=== PATIENT | male | born 1975 | race Caucasian/White ===

== ENCOUNTER 2016-11-24 17:45 | Emergency (ER) | payer MEDICAID ==
[2016-11-24 17:45] VITALS: BMI 22.4
[2016-11-24 17:58] VITALS: BP 139/98; PULSE 81; RESP 18; TEMP 98.9; O2SAT 96
[2016-11-25] MEDS ORDERED: Potassium Chloride 20 mEq ER Tab PO ONE (02:03)
== END 2016-11-24 17:57 | disposition left against medical advice (07) ==
LOC: C.ER 17:45
DX: Z04.8 Encounter for examination and observation for other specified reasons (principal); Z02.9 Encounter for administrative examinations, unspecified

== ENCOUNTER 2016-11-24 18:18 | Emergency (ER) | payer MEDICAID ==
[2016-11-24 18:19] VITALS: BMI 22.4
[2016-11-24 18:33] VITALS: BP 126/77; PULSE 73; RESP 20; TEMP 98.4; O2SAT 95
--- NOTE | 2016-11-24 18:40 | C.PDOC ---
History Of Present Illness 41 yr old male presents to the ER s/p using PCP. Patient has no complaints. Patient registered to be seen but left without being seen and returned but eventually eloped. Time Seen by Provider: 11/24/16 18:28 Chief Complaint (Nursing): Substance Abuse History Per: Patient History/Exam Limitations: no limitations Onset/Duration Of Symptoms: Unknown Past Medical History Reviewed: Historical Data, Nursing Documentation, Vital Signs Vital Signs: Last Vital Signs Temp 98.4 F 11/24/16 18:31 Pulse 73 11/24/16 18:31 Resp 20 11/24/16 18:31 BP 126/77 11/24/16 18:31 Pulse Ox 95 11/24/16 18:40 - Medical History PMH: Anxiety, Asthma, Depression - [facility] Procedures SUTURE OF LIP LACERATION (04/04/13) TETANUS TOXOID ADMINIST (04/04/13) Family History: States: No Known Family Hx - Social History Hx Tobacco Use: No Hx Alcohol Use: Yes Hx Substance Use: Yes (marijuana, PCP) - Immunization History Hx Tetanus Toxoid Vaccination: No Hx Influenza Vaccination: No Hx Pneumococcal Vaccination: No Review Of Systems Except As Marked, All Systems Reviewed And Found Negative. Cardiovascular: Negative for: Chest Pain Respiratory: Negative for: Shortness of Breath Neurological: Negative for: Weakness, Numbness, Headache Physical Exam - Physical Exam Appears: Non-toxic, No Acute Distress Skin: Warm, Dry Head: Atraumatic, Normacephalic Oral Mucosa: Moist Neurological/Psych: Oriented x3, Normal Speech, Normal Motor ED Course And Treatment O2 Sat by Pulse Oximetry: 95 Disposition - Disposition Disposition: ELOPEMENT - ER ONLY Disposition Time: 18:40 Condition: GUARDED - Clinical Impression Clinical Impression: Drug dependence - Scribe Statement The provider has reviewed the documentation as recorded by the Monster Trujillo Provider Attestation: All medical record entries made by the Monster were at my direction and personally dictated by me. I have reviewed the chart and agree that the record accurately reflects my personal performance of the history, physical exam, medical decision making, and the department course for this patient. I have also personally directed, reviewed, and agree with the discharge instructions and disposition.
== END 2016-11-24 18:31 | disposition left against medical advice (07) ==
LOC: C.ER 18:18
DX: F19.20 Other psychoactive substance dependence, uncomplicated (principal)

== ENCOUNTER 2016-11-24 21:20 | Inpatient (IN) | payer MEDICAID ==
[2016-11-24 21:20] VITALS: BMI 22.4
--- NOTE | 2016-11-24 22:27 | C.PDOC ---
History Of Present Illness A 41 year old male brought in via EMS and by his mother, presents to the ED for suicidal ideation after doing narcotics today. Patient states he hears voices but does not take medication for it. Patient notes he want to kill himself by "snapping his neck". Patient denies fever, chills, trauma, homicidal ideation, or any other complaints. Time Seen by Provider: 11/24/16 22:26 Chief Complaint (Nursing): Psychiatric Evaluation History Per: Patient History/Exam Limitations: no limitations Onset/Duration Of Symptoms: Hrs Current Symptoms Are (Timing): Still Present Suicide/Self Injury Attempted (Context): None Modifying Factor(s): Narcotics Severity: Mild Associated Symptoms: Suicidal Thoughts, Suicidal Plan Recent travel outside of the [place]: No Past Medical History Reviewed: Historical Data, Nursing Documentation, Vital Signs Vital Signs: Last Vital Signs Temp 97.8 F 11/24/16 21:39 Pulse 59 L 11/24/16 21:39 Resp 20 11/24/16 21:39 BP 144/82 11/24/16 21:39 Pulse Ox 98 11/25/16 01:05 - Medical History PMH: Anxiety, Asthma, Depression Denies: Diabetes, Hepatitis, HIV, HTN, Seizures, Sexually Transmitted Disease - [facility] Procedures SUTURE OF LIP LACERATION (04/04/13) TETANUS TOXOID ADMINIST (04/04/13) Family History: States: Unknown Family Hx - Social History Hx Tobacco Use: No Hx Alcohol Use: Yes Hx Substance Use: Yes (marijuana, PCP) - Immunization History Hx Tetanus Toxoid Vaccination: No Hx Influenza Vaccination: No Hx Pneumococcal Vaccination: No Review Of Systems Except As Marked, All Systems Reviewed And Found Negative. Constitutional: Negative for: Fever, Chills Psych: Positive for: Suicidal ideation. Negative for: Other (Homicidal ideation ) Physical Exam - Physical Exam Appears: Non-toxic, No Acute Distress Skin: Warm, Dry Head: Atraumatic, Normacephalic Eye(s): bilateral: PERRL, EOMI Cardiovascular: No Murmur Respiratory: No Rales, No Rhonchi, No Wheezing Neurological/Psych: Oriented x3, Normal Speech, No Other (No focal deficit) ED Course And Treatment - Laboratory Results Result Diagrams: 11/24/16 22:53 11/24/16 22:53 O2 Sat by Pulse Oximetry: 98 (Room air) Pulse Ox Interpretation: Normal Disposition Discussed With Dr.: Phyllis Pineda Comment: accepted the pt on his service and took over the care at 12:52 AM Doctor Will See Patient In The: Hospital Counseled Patient/Family Regarding: Studies Performed, Diagnosis - Disposition Disposition: HOSPITALIZED Disposition Time: 22:27 Condition: FAIR - POA Present On Arrival: None - Clinical Impression Clinical Impression: Drug abuse, Drug-induced psychotic disorder - Scribe Statement The provider has reviewed the documentation as recorded by the Scribe Kale shrestha All medical record entries made by the Scribe were at my direction and personally dictated by me. I have reviewed the chart and agree that the record accurately reflects my personal performance of the history, physical exam, medical decision making, and the department course for this patient. I have also personally directed, reviewed, and agree with the discharge instructions and disposition. Decision To Admit - Pt Status Changed To: Hospital Disposition Of: Inpatient - Admit Certification Admit to Inpatient:: After my assessment, the patient will require hospitalization for at least two midnights. This is because of the severity of symptoms shown, intensity of services needed, and/or the medical risk in this patient being treated as an outpatient. - InPatient: Physician Admission Certification: I certify that this patient requires 2 or more midnights of care for the following reason:: After my assessment, the patient will require hospitalization for at least two midnights. This is because of the severity of symptoms shown, intensity of services needed, and/or the medical risk in this patient being treated as an outpatient. - . Bed Request Type: Psychiatry Admitting Physician: Phyllis Pineda Patient Diagnosis: Drug abuse, Drug-induced psychotic disorder
[2016-11-24 22:58] LABS: BASO % 0.2 % (0.0-2.0); EOS % 0.3 % (0.0-4.0); HEMATOCRIT 49.4 % (35.0-51.0); LYMPH # 1.5 K/uL (1.0-4.3); LYMPH % 15.1 % (20.0-40.0); MEAN CELL VOLUME 93.4 fL (80.0-94.0); MEAN CORPUSCULAR HGB CONC 33.1 g/dL (33.0-37.0); MEAN PLATELET VOLUME 9.7 fL (7.2-11.7); MONO # 0.6 K/uL (0.0-0.8); MONO % 6.3 % (0.0-10.0); WHITE BLOOD COUNT 9.8 K/uL (4.8-10.8)
[2016-11-24 23:05] LABS: RBC URINE 6 /hpf (0-3); TRANSITIONAL EPITHIAL < 1 /hpf (0-3); URINE BACTERIA RARE (<OCC); URINE BILIRUBIN NEGATIVE (NEGATIVE); URINE BLOOD NEGATIVE (NEGATIVE); URINE COLOR Amber (YELLOW); URINE GLUCOSE (UA) NORMAL (Normal); URINE HYALINE CAST 0-2 /lpf (0-2); URINE KETONE 1+ mg/dL (NEGATIVE); URINE LEUKOCYTE ESTERASE NEG Leu/uL (Negative); URINE PROTEIN 2+ mg/dL (NEGATIVE); WBC URINE 6 /hpf (0-5)
[2016-11-24 23:06] LABS: CHLORIDE 100 mmol/L (98-107)
[2016-11-24 23:07] LABS: POTASSIUM 3.3 mmol/L (3.6-5.2); SODIUM 145 mmol/L (132-148)
[2016-11-24 23:09] LABS: ALB/GLOB RATIO 1.3 (1.0-2.1); ALKALINE PHOSPHATASE 58 U/L (38-126); ALT/SGPT 54 U/L (21-72); AST/SGOT 70 U/L (17-59); BILIRUBIN,TOTAL 1.2 mg/dL (0.2-1.3); BLOOD UREA NITROGEN 15 mg/dL (9-20); CALCIUM 9.2 mg/dl (8.6-10.4); CARBON DIOXIDE 28 mmol/L (22-30); GFR AFRICAN-AMERICAN > 60; GLUCOSE,RANDOM 119 mg/dL (75-110); TOTAL PROTEIN 8.3 g/dL (6.3-8.3)
[2016-11-24 23:10] LABS: ALCOHOL SERUM < 10 mg/dl (0-10)
[2016-11-25] MEDS ORDERED: Potassium Chloride 20 mEq ER Tab PO STA (02:24)
--- NOTE | 2016-11-25 11:51 | PCM.PSYCH ---
Initial Psychiatric Evaluation - Initial Psychiatric Evaluation Type of Admission: Voluntary Legal Status: Capacity Chief Complaint (in patient's own words): "I wanted to kill myself" History of Present Illness and Precipitating Events: Pt is seen, chart reviewed, case discussed. Pt is a 41 y/o single male. He has one daughter who is 20 years old but he does not have much contact with her. He has been homeless for 2 years and occasionally stays with his mother. He is from [place]. 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 Pt does not receive any social support. Pt feels depressed and anxious. He reports that he was suicidal and had a plan to either overdose or hang himself. He contracts for safety and is future oriented. He feels bad and angry about the mistakes he made in his life such as drugs and robbery. He feels "the world is crumbling down on him." Patient reports that he has been hospitalized in the past for psychiatric issues, most recently last year but could not provide where. He says he has been diagnosed with depression and bipolar disorder. Pt says he has tried to commit suicide by overdosing in the past. Pt has been using PCP, marijuana, and cocaine. He used heroin on Friday but says he is not addicted. He has used Xanax in the past. He denies current alcohol use. Pt has never been to rehab. Pt expressed that he wants help , to change his life and give back to the community. Pt denies current legal problems. PMH: denies PsychHx: depression, bipolar FamPsychHx: Mother drinks, nephew has psych problems. 32 minutes Current Medications: Active Medications Generic Name Dose Route Start Last Admin Trade Name Freq PRN Reason Stop Dose Admin Acetaminophen 650 mg 11/25/16 02:25 Tylenol 325mg Tab PO Q4 PRN Pain, moderate (4-7) Gabapentin 300 mg 11/25/16 14:00 Neurontin PO TID NITZA Hydroxyzine HCl 50 mg 11/25/16 11:28 Atarax PO Q6H PRN Anxiety Lorazepam 2 mg 11/25/16 11:08 11/25/16 11:18 Ativan PO 2 mg Q8 PRN Administration Anxiety Quetiapine Fumarate 50 mg 11/25/16 11:08 11/25/16 11:18 Seroquel PO 50 mg TID NITZA Administration Quetiapine Fumarate 100 mg 11/25/16 22:00 Seroquel PO HS NITZA Trazodone HCl 100 mg 11/25/16 22:00 Desyrel PO HS PRN Sleep Past Psychiatric History - Past Psychiatric History Previous Treatment History: None Pertinent Medical Hx (Current Medical&Sleep Prob, Allergies): Allergies Allergy/AdvReac Type Severity Reaction Status Date / Time No Known Allergies Allergy Verified 11/24/16 21:44 Albuterol 0.5% [Albuterol 0.5% Inhal Tea (2.5 mg/0.5 ml) UD] 0.5 ml IH Q6 PRN # 20 neb 08/31/15 Review of Systems - Psychiatric Psychiatric: Abnormal Sleep Pattern, Anhedonia, Anxiety, Depression, Difficulty Concentrating. absent: Homicidal Ideation Mental Status Examination - Personal Presentation Personal Presentation: Looks older than stated age (unkempt, has grimacing, odd at times) - Affect Affect: Constricted (odd), Depressed - Motor Activity Motor Activity: Psychomotor Agitation - Reliability in Providing Information Reliability in Providing Information: Fair - Speech Speech: Tangential - Mood Mood: Depressed, Anxious - Formal Thought Process Formal Thought Process: Paranoia - Obsessions/Compulsions Obsessions: No Compulsions: No - Cognitive Functions Orientation: Person, Place, Situation, Time Sensorium: Alert Attention/Concentration: Easily distracted Abstract Thinking: [place] [facility] Judgement: Intact, as evidence by: Insight regarding need for hospitalization Memory: Recent intact, as evidence by: Ability to recall events of the day, Remote intact, as evidenced by: Abilit to recall sig. life events - Risk Risk: Withdrawal, Diminished functioning - Strength & Assets Inventory Strength & Assets Inventory: Cooperative - Limitations Limitations: Living alone DSM 5 DX - DSM 5 DSM 5 Diagnosis: Schizoaffective disorder-depressed PCP use disorder Cocaine use disorder Cannabis use disorder r/o Major Depressive Disorder with psychotic features - Recommended/Plan of Treatment Treatment Recommendations and Plan of Treatment: Schizoaffective disorder -depressed -Seroquel 100mg + 50 mg bid and will increase more -medications as needed -CBT -individual/group therapy -attend groups and activities -Trazodone for insomnia PCP use disorder -CBT -IL for abstinence -support and psychoeducation -ativan prn Cocaine/cannabis use disorder -CBT - gabapentin -supportive/group therapy -[place] for abstinence -support and psychoeducation 35 minutes Projected ELOS: 7 days Prognosis: good wt treatment - Smoking Cessation Smoking Cessation Initiated: Yes
--- NOTE | 2016-11-26 13:41 | PCM.PYCHPN ---
Psychiatric Progress Note - Psychiatric Progress Note Patient seen today, length of contact: 18 minutes Patient Chief Complaint: "I feel ok" Problems Identified/Issues Discussed: Pt is seen, chart reviewed, case discussed Pt says that he slept well last night. He feels much better and does not have any S/I. He has an appetite and complains of no side effects from medications. Pt was social and interacting with other patients. He was more calm and less agitated. Per nursing pt followed instructions yesterday and came to nursing station when he was having bad thoughts. Aftercare was discussed, pt wants to go back to work and continue with an IOP. Psychosocial support and education was given Medication Change: No Medical Record Reviewed: Yes Mental Status Examination - Cognitive Function Orientation: Person, Place, Situation, Time Memory: Intact Attention: WNL Concentration: WNL Association: Loose Fund of Knowledge: Poor - Mood Mood: Anxious - Affect Affect: Constricted (odd), Depressed - Speech Speech: Appropriate - Formal Thought Process Formal Thought Process: Paranoia - Suicidal Ideation Suicidal Ideation: No - Homicidal Ideation Homicidal Ideation: No Goal/Treatment Plan - Goal/Treatment Plan Need for Continued Stay: Remain at risks for inpatient hospitalization, Discharge may exacerbated symptoms Progress Toward Problem(s) and Goals/Treatment Plan: Schizoaffective disorder -depressed -Seroquel 100mg + 50 mg bid and will increase more -medications as needed -CBT -individual/group therapy -attend groups and activities -Trazodone for insomnia PCP use disorder -CBT -[place] for abstinence -support and psychoeducation -ativan prn Cocaine/cannabis use disorder -CBT - gabapentin -supportive/group therapy -[place] for abstinence -support and psychoeducation
--- NOTE | 2016-11-27 13:25 | PCM.PYCHPN ---
Psychiatric Progress Note - Psychiatric Progress Note Patient seen today, length of contact: 16 min Patient Chief Complaint: "I am up and down, but better" Problems Identified/Issues Discussed: Pt is seen, chart reviewed, case discussed The pt is seen, chart reviewed, case discussed with staff. The pt is compliant with medications and reports no side-effects. Symptoms are improving but needs more time to stabilize. After care discussed, support and psychoeducation given. He now wants to go to [facility] Medication Change: No Medical Record Reviewed: Yes Mental Status Examination - Cognitive Function Orientation: Person, Place, Situation, Time Memory: Intact Attention: WNL Concentration: WNL Association: WNL Fund of Knowledge: Poor - Mood Mood: Anxious - Affect Affect: Constricted - Speech Speech: Appropriate - Formal Thought Process Formal Thought Process: No Impairment - Suicidal Ideation Suicidal Ideation: No - Homicidal Ideation Homicidal Ideation: No Goal/Treatment Plan - Goal/Treatment Plan Need for Continued Stay: Discharge may exacerbated symptoms, Severe functional impairment Progress Toward Problem(s) and Goals/Treatment Plan: Schizoaffective disorder -depressed -Seroquel 100mg + 50 mg seems to be enough for now -medications as needed -CBT -individual/group therapy -attend groups and activities -Trazodone for insomnia PCP use disorder -CBT -AL for abstinence -support and psychoeducation -ativan prn Cocaine/cannabis use disorder -CBT - gabapentin -supportive/group therapy -AL for abstinence -support and psychoeducation Estimated Date of D/C: 11/29/16
--- NOTE | 2016-11-28 13:13 | PCM.PYCHPN ---
Psychiatric Progress Note - Psychiatric Progress Note Patient seen today, length of contact: 15 min Patient Chief Complaint: "I am better" Problems Identified/Issues Discussed: The pt is seen, chart reviewed, case discussed with staff. The pt is compliant with medications and reports no side-effects. Symptoms are improving slowly but needs more time to stabilize. He denies feeling paranoid, but he was 2 days ago and he told his mother that someone was trying to kill him here. He laughs it now After care discussed, support and psychoeducation given. He now wants to go to [facility]. 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 Medication Change: Yes (seroquel adjusted) Medical Record Reviewed: Yes Mental Status Examination - Cognitive Function Orientation: Person, Place, Situation, Time Memory: Intact Attention: WNL Concentration: WNL Association: WNL Fund of Knowledge: Poor - Mood Mood: Anxious - Affect Affect: Constricted - Speech Speech: Appropriate - Formal Thought Process Formal Thought Process: No Impairment - Suicidal Ideation Suicidal Ideation: No - Homicidal Ideation Homicidal Ideation: No Goal/Treatment Plan - Goal/Treatment Plan Need for Continued Stay: Discharge may exacerbated symptoms, Severe functional impairment Progress Toward Problem(s) and Goals/Treatment Plan: Schizoaffective disorder -depressed -Seroquel 200 mg -medications as needed -CBT -individual/group therapy -attend groups and activities -Trazodone for insomnia PCP use disorder -CBT -[place] for abstinence -support and psychoeducation -ativan prn Cocaine/cannabis use disorder -CBT - gabapentin -supportive/group therapy -IN for abstinence -support and psychoeducation Estimated Date of D/C: 11/29/16
--- NOTE | 2016-11-29 15:08 | PCM.PYCHPN ---
Psychiatric Progress Note - Psychiatric Progress Note Patient seen today, length of contact: 15 min Patient Chief Complaint: "I'm ok" Problems Identified/Issues Discussed: Patient is seen, chart reviewed, case discussed. Patient says he is doing well. He reports his mood is "perfect." He slept well last night. Patient denies any nausea, vomiting, diarrhea and cramps. He denies medication side effects. Pt wants to go to outpatient treatment instead of rehab because he will go back to living with his mom and she needs help around the house. He says he is determined to stay away from drugs. Patient denies feeling depressed or anxious. Patient says that now the drugs are out of his system he is having less paranoid thoughts and auditory hallucinations. Patient is calm. He has been socializing with the other patients. Patient has a constricted affect. Medication Change: No Medical Record Reviewed: Yes Mental Status Examination - Cognitive Function Orientation: Person, Place, Situation, Time Memory: Intact Attention: WNL Concentration: WNL Association: WNL Fund of Knowledge: Poor - Mood Mood: Anxious - Affect Affect: Constricted - Speech Speech: Appropriate - Formal Thought Process Formal Thought Process: No Impairment - Suicidal Ideation Suicidal Ideation: No - Homicidal Ideation Homicidal Ideation: No Goal/Treatment Plan - Goal/Treatment Plan Need for Continued Stay: Discharge may exacerbated symptoms, Severe functional impairment Progress Toward Problem(s) and Goals/Treatment Plan: Schizoaffective disorder -depressed -Seroquel 200 mg -medications as needed -CBT -individual/group therapy -attend groups and activities -Trazodone for insomnia PCP use disorder -CBT -[place] for abstinence -support and psychoeducation -ativan prn Cocaine/cannabis use disorder -CBT - gabapentin -supportive/group therapy -[place] for abstinence -support and psychoeducation Estimated Date of D/C: 11/29/16
--- NOTE | 2016-11-30 12:50 | PCM.PYCHPN ---
Psychiatric Progress Note - Psychiatric Progress Note Patient seen today, length of contact: 15 min Patient Chief Complaint: "I'm ok" Problems Identified/Issues Discussed: Patient is seen, chart reviewed, case discussed. Patient says he is doing well. He reports his mood is "perfect." He slept well last night. Patient denies any nausea, vomiting, diarrhea and cramps. He denies medication side effects. Pt wants to go to outpatient treatment instead of rehab because he will go back to living with his mom and she needs help around the house. He says he is determined to stay away from drugs. Patient denies feeling depressed or anxious. Patient says that now the drugs are out of his system he is having less paranoid thoughts and auditory hallucinations. Patient is calm. He has been socializing with the other patients. Patient has a constricted affect. Medication Change: No Medical Record Reviewed: Yes Mental Status Examination - Cognitive Function Orientation: Person, Place, Situation, Time Memory: Intact Attention: WNL Concentration: WNL Association: WNL Fund of Knowledge: Poor - Mood Mood: Anxious - Affect Affect: Constricted - Speech Speech: Appropriate - Formal Thought Process Formal Thought Process: No Impairment - Suicidal Ideation Suicidal Ideation: No - Homicidal Ideation Homicidal Ideation: No Goal/Treatment Plan - Goal/Treatment Plan Need for Continued Stay: Discharge may exacerbated symptoms, Severe functional impairment Progress Toward Problem(s) and Goals/Treatment Plan: Schizoaffective disorder -depressed -Seroquel 200 mg -medications as needed -CBT -individual/group therapy -attend groups and activities -Trazodone for insomnia PCP use disorder -CBT -[place] for abstinence -support and psychoeducation -ativan prn Cocaine/cannabis use disorder -CBT - gabapentin -supportive/group therapy -[place] for abstinence -support and psychoeducation Estimated Date of D/C: 11/29/16
[2016-12-01 07:27] VITALS: O2SAT 96
--- NOTE | 2016-12-01 16:19 | PCM.PYCHPN ---
Psychiatric Progress Note - Psychiatric Progress Note Patient seen today, length of contact: 15 min Patient Chief Complaint: "I'm ok" Problems Identified/Issues Discussed: Patient is seen, chart reviewed, case discussed. Patient says he is doing well. He reports his mood is "perfect." He slept well last night. Patient denies any nausea, vomiting, diarrhea and cramps. He denies medication side effects. Pt wants to go to outpatient treatment instead of rehab because he will go back to living with his mom and she needs help around the house. He says he is determined to stay away from drugs. Patient denies feeling depressed or anxious. Patient says that now the drugs are out of his system he is having less paranoid thoughts and auditory hallucinations. Patient is calm. He has been socializing with the other patients. Patient has a constricted affect. Medication Change: No Medical Record Reviewed: Yes Mental Status Examination - Cognitive Function Orientation: Person, Place, Situation, Time Memory: Intact Attention: WNL Concentration: WNL Association: WNL Fund of Knowledge: Poor - Mood Mood: Anxious - Affect Affect: Constricted - Speech Speech: Appropriate - Formal Thought Process Formal Thought Process: No Impairment - Suicidal Ideation Suicidal Ideation: No - Homicidal Ideation Homicidal Ideation: No Goal/Treatment Plan - Goal/Treatment Plan Need for Continued Stay: Discharge may exacerbated symptoms, Severe functional impairment Progress Toward Problem(s) and Goals/Treatment Plan: Schizoaffective disorder -depressed -Seroquel 200 mg -medications as needed -CBT -individual/group therapy -attend groups and activities -Trazodone for insomnia PCP use disorder -CBT -[place] for abstinence -support and psychoeducation -ativan prn Cocaine/cannabis use disorder -CBT - gabapentin -supportive/group therapy -DC for abstinence -support and psychoeducation Estimated Date of D/C: 11/29/16
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
[2016-12-02 10:31] VITALS: BP 108/76; PULSE 77; RESP 20; TEMP 97.7
== END 2016-12-02 10:35 | disposition home or self-care (01) | DRG 430 ==
LOC: C.ER 21:20 → C.5E 11-25 00:51
PROVIDERS: ADMIT Psychiatry & Neurology Psychiatry; ATTEND Psychiatry & Neurology Psychiatry
PROC: GZHZZZZ Group Psychotherapy (ICD-10-PCS; principal; 2016-11-25)
PROC: GZ58ZZZ Individual Psychotherapy, Cognitive-Behavioral (ICD-10-PCS; 2016-11-25)
PROC: GZ56ZZZ Individual Psychotherapy, Supportive (ICD-10-PCS; 2016-11-25)
DX: F25.1 Schizoaffective disorder, depressive type (principal); F32.3 Major depressive disorder, single episode, severe with psychotic features; F16.90 Hallucinogen use, unspecified, uncomplicated; F14.90 Cocaine use, unspecified, uncomplicated; F12.90 Cannabis use, unspecified, uncomplicated; J45.909 Unspecified asthma, uncomplicated; F41.9 Anxiety disorder, unspecified; Z59.0 Homelessness; G47.00 Insomnia, unspecified

== ENCOUNTER 2017-01-20 01:27 | Emergency (ER) | payer SELFPAY ==
[2017-01-20 01:28] VITALS: BMI 22.4
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
[2017-01-20] MEDS ORDERED: Sodium Chloride 0.9% 1,000 ML IV ONE (01:40)
[2017-01-20] MEDS ORDERED: Sodium Chloride 0.9% 1,000 ML ONE (01:46)
[2017-01-20 02:00] LABS: BASO % 0.3 % (0.0-2.0); EOS # 0.1 K/uL (0.0-0.7); HEMATOCRIT 45.2 % (35.0-51.0); LYMPH % 15.4 % (20.0-40.0); MEAN CELL VOLUME 92.3 fL (80.0-94.0); MEAN CORPUSCULAR HEMOGLOBIN 31.2 pg (27.0-31.0); MEAN CORPUSCULAR HGB CONC 33.8 g/dL (33.0-37.0); MONO # 0.4 K/uL (0.0-0.8); MONO % 6.2 % (0.0-10.0); NRBC % 0.1 % (0.0-2.0); RED CELL DISTRIBUTION WIDTH 12.4 % (11.5-14.5); WHITE BLOOD COUNT 6.8 K/uL (4.8-10.8)
[2017-01-20 02:10] LABS: ABG ALLEN TEST POS; ARTERIAL BLOOD HGB O2 SAT 91.3 % (95.0-98.0); DRAW SITE RR; HHB 3.5 % (0.0-5.0); METHEMOGLOBIN 1.3 % (0.0-3.0)
[2017-01-20 02:13] LABS: CHLORIDE 108 mmol/L (98-107); POTASSIUM 3.6 mmol/L (3.6-5.2); SODIUM 144 mmol/L (132-148)
[2017-01-20 02:15] LABS: AST/SGOT 29 U/L (17-59); BILIRUBIN,TOTAL 0.8 mg/dL (0.2-1.3); CARBON DIOXIDE 27 mmol/L (22-30); GFR AFRICAN-AMERICAN > 60
[2017-01-20 02:16] LABS: ALB/GLOB RATIO 1.1 (1.0-2.1); ALKALINE PHOSPHATASE 63 U/L (38-126); ALT/SGPT 40 U/L (21-72); BLOOD UREA NITROGEN 12 mg/dL (9-20); GLUCOSE,RANDOM 112 mg/dL (75-110); TOTAL PROTEIN 7.6 g/dL (6.3-8.3)
[2017-01-20] MEDS ORDERED: Albuterol 0.042% Inhal Sol (1.25 mg/3 mL) UD IH STA (02:26)
[2017-01-20] MEDS ORDERED: Albuterol 0.083% Inhal Sol (2.5 mg/3 mL) UD ONE (02:33)
[2017-01-20 04:13] LABS: ARTERIAL BLOOD HGB O2 SAT 94.5 % (95.0-98.0); CARBOXYHEMOGLOBIN 3.3 % (0.5-1.5); METHEMOGLOBIN 1.4 % (0.0-3.0)
[2017-01-20 04:35] VITALS: BP 139/78; PULSE 91; RESP 20
[2017-01-20 04:44] VITALS: O2SAT 99
--- NOTE | 2017-01-20 08:45 | RAD ---
HISTORY: Shortness of breath COMPARISON: No prior. TECHNIQUE: Chest PA and lateral FINDINGS: LUNGS: Diffuse increased interstitial lung markings which may represent minimal edema and/or minimal infiltrate. Clinical correlation. PLEURA: No significant pleural effusion identified. No pneumothorax apparent. CARDIOVASCULAR: Normal. OSSEOUS STRUCTURES: No significant abnormalities. VISUALIZED UPPER ABDOMEN: Normal. OTHER FINDINGS: None. IMPRESSION: Diffuse increased interstitial lung markings which may represent minimal edema and/or minimal infiltrate. Clinical correlation.
== END 2017-01-20 04:32 | disposition home or self-care (01) ==
LOC: C.ER 01:27
DX: J45.909 Unspecified asthma, uncomplicated (principal); T59.811A Toxic effect of smoke, accidental (unintentional), initial encounter; J70.5 Respiratory conditions due to smoke inhalation; Y92.9 Unspecified place or not applicable; Z72.0 Tobacco use
CPT/HCPCS: 71020; 80053; 82375; 82803; 84484; 85025; 85378; 99285; J7040

== ENCOUNTER 2017-03-10 23:43 | Emergency (ER) | payer SELFPAY ==
[2017-03-10 23:44] VITALS: BMI 22.4
[2017-03-11] MEDS ORDERED: Sodium Chloride 0.9% 1,000 ML IV ONE (01:32)
[2017-03-11] MEDS ORDERED: Sodium Chloride 0.9% 1,000 ML ONE (01:54)
[2017-03-11 02:25] LABS: BASO % 0.3 % (0.0-2.0); EOS # 0.1 K/uL (0.0-0.7); HEMATOCRIT 46.2 % (35.0-51.0); LYMPH # 1.2 K/uL (1.0-4.3); LYMPH % 13.6 % (20.0-40.0); MEAN CELL VOLUME 92.4 fL (80.0-94.0); MEAN CORPUSCULAR HEMOGLOBIN 31.5 pg (27.0-31.0); MEAN CORPUSCULAR HGB CONC 34.1 g/dL (33.0-37.0); MEAN PLATELET VOLUME 9.2 fL (7.2-11.7); MONO # 0.7 K/uL (0.0-0.8); MONO % 7.5 % (0.0-10.0); WHITE BLOOD COUNT 8.8 K/uL (4.8-10.8)
[2017-03-11 02:38] LABS: CHLORIDE 104 mmol/L (98-107); SODIUM 145 mmol/L (132-148)
[2017-03-11 02:40] LABS: BILIRUBIN,TOTAL 0.9 mg/dL (0.2-1.3); CARBON DIOXIDE 28 mmol/L (22-30); GFR AFRICAN-AMERICAN > 60
[2017-03-11 02:41] LABS: ALB/GLOB RATIO 1.1 (1.0-2.1); ALKALINE PHOSPHATASE 74 U/L (38-126); ALT/SGPT 48 U/L (21-72); AST/SGOT 39 U/L (17-59); BLOOD UREA NITROGEN 12 mg/dL (9-20); CALCIUM 9.3 mg/dl (8.6-10.4); GLUCOSE,RANDOM 96 mg/dL (75-110); TOTAL PROTEIN 7.6 g/dL (6.3-8.3)
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
[2017-03-11 04:36] VITALS: BP 114/68; PULSE 61; RESP 18; TEMP 97.5
--- NOTE | 2017-03-11 08:20 | RAD ---
PROCEDURE: Radiographs of the Chest and Right Ribs. HISTORY: rib cage pain/ injury COMPARISON: 01/20/2017 TECHNIQUE: Frontal radiograph of the chest and multiple oblique radiographs of the right ribs were obtained. FINDINGS: RIGHT RIBS: Trace deformity consistent with a subacute to chronic nondisplaced inferolateral right rib fracture - probably the 9th rib is noted. LUNGS: Clear. Prior interstitial lung marking relative prominence is no longer suggested. PLEURA: No pneumothorax or pleural fluid. CARDIOVASCULAR: Normal sized heart. No pulmonary vascular congestion. OTHER FINDINGS: None. IMPRESSION: Subacute to chronic nondisplaced inferolateral right rib fracture -signs of healing are suggested -likely the 9th rib. No pneumothorax or pleural parenchymal contiguous pathology
[2017-03-11 17:29] VITALS: O2SAT 96
--- NOTE | 2017-03-11 18:28 | CARD ---
APPROVED REPORT EKG Measurement Heart [id number] <Conclusion> Normal sinus rhythm Possible Left atrial enlargement Left axis deviation Abnormal ECG
== END 2017-03-11 04:38 | disposition home or self-care (01) ==
LOC: C.ER 23:43
DX: R07.89 Other chest pain (principal)
CPT/HCPCS: 71101; 80053; 84484; 85025; 85378; 93005; 96374; 99284; J1885; J7040

== ENCOUNTER 2017-05-05 15:41 | Inpatient (IN) | payer MEDICAID, OTHER ==
[2017-05-05 15:41] VITALS: BMI 22.4
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
[2017-05-05 17:25] LABS: BASO % 0.2 % (0.0-2.0); EOS % 0.2 % (0.0-4.0); HEMATOCRIT 47.1 % (35.0-51.0); LYMPH # 0.8 K/uL (1.0-4.3); LYMPH % 14.8 % (20.0-40.0); MEAN CELL VOLUME 93.1 fL (80.0-94.0); MEAN CORPUSCULAR HEMOGLOBIN 32.2 pg (27.0-31.0); MEAN CORPUSCULAR HGB CONC 34.6 g/dL (33.0-37.0); MONO # 0.4 K/uL (0.0-0.8); MONO % 6.7 % (0.0-10.0); NRBC % 0.1 % (0.0-2.0); RED CELL DISTRIBUTION WIDTH 12.7 % (11.5-14.5); WHITE BLOOD COUNT 5.5 K/uL (4.8-10.8)
[2017-05-05 17:51] LABS: CHLORIDE 101 mmol/L (98-107); SODIUM 137 mmol/L (132-148)
[2017-05-05 17:53] LABS: GFR AFRICAN-AMERICAN > 60
[2017-05-05 17:54] LABS: ALB/GLOB RATIO 1.2 (1.0-2.1); ALKALINE PHOSPHATASE 53 U/L (38-126); ALT/SGPT 53 U/L (21-72); AST/SGOT 32 U/L (17-59); BILIRUBIN,TOTAL 1.2 mg/dL (0.2-1.3); BLOOD UREA NITROGEN 12 mg/dL (9-20); CALCIUM 9.1 mg/dl (8.6-10.4); CARBON DIOXIDE 22 mmol/L (22-30); GLUCOSE,RANDOM 88 mg/dL (75-110); TOTAL PROTEIN 8.2 g/dL (6.3-8.3)
[2017-05-05 17:55] LABS: ALCOHOL SERUM < 10 mg/dl (0-10)
[2017-05-05 17:59] LABS: RBC URINE 2 /hpf (0-3); URINE BACTERIA RARE (<OCC); URINE BILIRUBIN NEGATIVE (NEGATIVE); URINE BLOOD NEGATIVE (NEGATIVE); URINE COLOR Amber (YELLOW); URINE GLUCOSE (UA) NORMAL (Normal); URINE KETONE 1+ mg/dL (NEGATIVE); URINE LEUKOCYTE ESTERASE NEG Leu/uL (Negative); URINE PROTEIN 1+ mg/dL (NEGATIVE); WBC URINE 1 /hpf (0-5)
--- NOTE | 2017-05-05 22:17 | PCM.BM ---
<Maeve Melara - Last Filed: 05/05/17 22:16> Treatment Plan Problems - Problems identified on initial assessmt Problem 1 Date Initiated: 05/05/17 Time Initiated: 22:16 Assessment reference: NA Status: Active Treatment assets and liabiliti Patient Assests: cooperative, ADL independent Patient Liabilities: substance abuse - Milieu Protocol Maintain good personal hygiene: daily Encourage regular showers, daily Remind patient to perform daily oral care, daily Assist patient to perform ADL's Conduct patient checks and document Observation sheet: Q15 minutes Maintain personal safety: every shift Educate patient to report safety concerns to staff, every shift Monitor environment for contraband/sharps Medication safety: Monitor for expected outcome, potential side effects: every shift, Assess barriers to learning: every shift, Assess readiness for medication education: every shift <Jese Martel - Last Filed: 05/06/17 17:49> - Diagnosis (1) Major depressive disorder, recurrent, severe with psychotic features Status: Acute Interventions: Assess/adjust medications daily and/or as needed SEE patient on him individual basis 7x/week to assess status of hallucinations. Discuss risks, benefits, side effects and alternatives of medications. 05/06/17 17:49 (2) Phencyclidine (PCP) use disorder, moderate Status: Acute Interventions: Assess 7x/week regarding severity of withdrawal Educated regarding risks, benefits, side effects and alternatives of medications Used motivational interview for abstinence Used CBT for relapse prevention Medication management for withdrawal symptoms Encouraged medication assisted treatment 05/06/17 17:47 (3) Cannabis use disorder, moderate, dependence Status: Acute Interventions: Assess 7x/week regarding severity of withdrawal Educated regarding risks, benefits, side effects and alternatives of medications Used motivational interview for abstinence Used CBT for relapse prevention Medication management for withdrawal symptoms Encouraged medication assisted treatment 05/06/17 17:48 (4) Cocaine use disorder, mild, abuse Status: Acute Interventions: Assess 7x/week regarding severity of withdrawal Educated regarding risks, benefits, side effects and alternatives of medications Used motivational interview for abstinence Used CBT for relapse prevention Medication management for withdrawal symptoms Encouraged medication assisted treatment 05/06/17 17:48 <Giselle Ramirez - Last Filed: 05/07/17 12:05> Family Contact Family involvement: Famliy/SO not involved - Goals for Treatment Patient goals for treatment: "I guess I'll go to outpatient." Discharge/Continuing Care - Education Needs Education Needs: Patient Medication, Patient Coping Skills - Discharge Discharge Criteria: Tolerates medication w/o severe side effects, Free of Suicidal thoughts, Reduction of target symptoms Discharge to:: Home - Treatment Team Participation Discussed with Family/SO: No Was Patient/Family/SO present at Treatment Team Meeting: Yes
--- NOTE | 2017-05-06 17:32 | PCM.PSYCH ---
Initial Psychiatric Evaluation - Initial Psychiatric Evaluation Type of Admission: Voluntary Legal Status: Capacity Chief Complaint (in patient's own words): I was depressed and wanted to kill myself History of Present Illness and Precipitating Events: Patient is a 42 years old, unemployed, single, male with history of schizoaffective disorder depressive type, PCP use disorder, cannabis and cocaine use disorder was admitted due to worsening of depressive symptoms and suicidal ideations or plan to overdose on medications. Patient reported he is depressed for last many months, was not taking any medications due to insurance reasons. Reported no problem with sleep because of substance use. No change in appetite or weight change. Patient reported he became suicidal yesterday with plan to overdose on his drugs including PCP, cocaine and cannabis. His family brought him to the ER and patient was admitted subsequently. Patient reported he still feels suicidal but feels safe in the hospital. He has 3 previous suicidal attempts by overdose. History of 2 previous psychiatric admissions. Also reported that at times he hears voices telling him to kill himself. Patient has history of PCP, cannabis, cocaine and alcohol use. He started using PCP at 14 years of age, increased gradually. Currently he was using 2-3 cigarettes daily. Last used yesterday. Cannabis started at 14 years of age, increased gradually. Currently was using 2-3 blunts daily. Last used yesterday. Cocaine. Was guarded about cocaine but it was also positive for sure drug screen. Patient reported that he drinks alcohol only socially. No smoking cigarettes. Patient has history of shoplifting and robbery in the past. He was born in [place], has high school graduation, not working. Lives with mother or friends. Supported by family. He still and has one grown up child. His height is 6 feet 1 inch and weight is 180 pounds. Current Medications: Active Medications Generic Name Dose Route Start Last Admin Trade Name Freq PRN Reason Stop Dose Admin Benztropine Mesylate 2 mg 05/05/17 22:40 Cogentin PO Q6 PRN Extra Pyramidal Symptoms Clonidine HCl 0.1 mg 05/05/17 22:40 Catapres PO Q8 PRN COWS Score More or Equal to 5 Dicyclomine HCl 10 mg 05/05/17 22:40 Bentyl PO Q6 PRN Muscle spasm Diphenhydramine HCl 50 mg 05/05/17 22:40 Benadryl PO Q6 PRN Extra Pyramidal Symptoms Docusate Sodium 100 mg 05/05/17 22:40 05/06/17 09:20 Colace PO 100 mg BID PRN Administration Constipation Gabapentin 300 mg 05/06/17 10:00 05/06/17 09:20 Neurontin PO 300 mg BID NITZA Administration Haloperidol 5 mg 05/05/17 22:40 Haldol PO Q8 PRN Moderate Agitation Haloperidol Lactate 5 mg 05/05/17 22:40 Haldol IM Q8 PRN Moderate Agitation Hydroxyzine HCl 25 mg 05/05/17 22:40 Atarax PO Q6 PRN Anxiety Ibuprofen 400 mg 05/05/17 22:40 Motrin Tab PO Q6 PRN Pain, moderate (4-7) Loperamide HCl 2 mg 05/05/17 22:40 Imodium PO Q8 PRN Diarrhea Lorazepam 2 mg 05/05/17 22:40 Ativan PO Q8H PRN Severe Agitation Ondansetron HCl 4 mg 05/05/17 22:40 Zofran Tab PO Q8 PRN Nausea/Vomiting Quetiapine Fumarate 100 mg 05/06/17 22:00 Seroquel PO HS [facility] Past Psychiatric History - Past Psychiatric History Previous Treatment History: Inpatient History of Abuse: None reported History of ETOH/Drug Use: See HPI History of Family Illness: Reported one of his brother committed suicide by overdose on heroin. Pertinent Medical Hx (Current Medical&Sleep Prob, Allergies): Allergies Allergy/AdvReac Type Severity Reaction Status Date / Time No Known Allergies Allergy Verified 05/05/17 16:10 QUEtiapine [Seroquel] 200 mg PO HS #30 tab 12/02/16 Albuterol HFA [Ventolin HFA 90 mcg/actuation (8 g)] 2 puff IH [id number] #1 inhaler 01/20/17 Asthma Review of Systems - Psychiatric Psychiatric: Depression Mental Status Examination - Personal Presentation Personal Presentation: Looks stated age - Affect Affect: Depressed - Motor Activity Motor Activity: Calm - Reliability in Providing Information Reliability in Providing Information: Fair - Speech Speech: Organized - Mood Mood: Depressed - Formal Thought Process Formal Thought Process: No Impairment - Hallucinations/Delusions Hallucinations: Other (None reported) Delusions: Other - Obsessions/Compulsions Obsessions: None Compulsions: None - Cognitive Functions Orientation: Person, Place, Situation, Time Sensorium: Alert Attention/Concentration: Attentive Abstract Thinking: [place] Estimate of Intelligence: Average Judgement: Intact, as evidence by: Insight regarding need for hospitalization Memory: Recent intact, as evidence by: 3/3 object recall, Remote intact, as evidenced by: Ability to recall historical events - Risk Risk: Withdrawal, Diminished functioning - Strength & Assets Inventory Strength & Assets Inventory: Family support, Cooperative - Limitations Limitations: Other DSM 5 DX - DSM 5 DSM 5 Diagnosis: Schizoaffective disorder depressive type PCP use disorder Cannabis use disorder moderate Cocaine use disorder - Recommended/Plan of Treatment Treatment Recommendations and Plan of Treatment: Patient education Supportive therapy We'll start his discharge medications. Other when necessary medications Projected ELOS: 8-10 days - Smoking Cessation Smoking Cessation Initiated: No Reason for not providing: Patient doesn't smoke cigarettes
[2017-05-07] MEDS ORDERED: Influenza Vaccine 60 mcg/0.5 mL SYR (4YR UP) IM ONE (10:00)
--- NOTE | 2017-05-07 15:44 | PCM.PYCHPN ---
Psychiatric Progress Note - Psychiatric Progress Note Patient seen today, length of contact: 15 minutes Patient Chief Complaint: I'm feeling much better. Problems Identified/Issues Discussed: Patient seen. Chart reviewed. Case discussed with the staff. Issues related to illness and treatment were discussed with the patient. Reported compliant with treatment with no adverse affects. Tolerating treatment very well. Reporting feeling better, had good night sleep. Less irritable and less agitated. At the time of evaluation, patient was awake alert oriented 3, had no delusions , no auditory or visual hallucinations, no suicidal ideations or homicidal ideations. Medical Problems: Asthma Diagnostic Results: Reviewed DSM 5 Symptoms Update: Some improvement with treatment Medication Change: No Medical Record Reviewed: Yes Mental Status Examination - Cognitive Function Orientation: Person, Place, Situation, Time Memory: Intact Attention: WNL Concentration: WNL Association: WN Fund of Knowledge: WN - Mood Mood: Depressed (Less than before) - Affect Affect: Depressed - Speech Speech: Appropriate - Formal Thought Process Formal Thought Process: No Impairment Psychotic Thoughts and Behaviors: None - Suicidal Ideation Suicidal Ideation: No - Homicidal Ideation Homicidal Ideation: No Goal/Treatment Plan - Goal/Treatment Plan Need for Continued Stay: Remain at risks for inpatient hospitalization, Discharge may exacerbated symptoms, Severe functional impairment Progress Toward Problem(s) and Goals/Treatment Plan: Patient education Supportive therapy Continue treatment as before Estimated Date of D/C: 05/12/17 - Smoking Cessation Smoking Cessation Initiated: No
--- NOTE | 2017-05-08 17:48 | PCM.PYCHPN ---
Psychiatric Progress Note - Psychiatric Progress Note Patient seen today, length of contact: 15 minutes Patient Chief Complaint: I'm feeling much better. Problems Identified/Issues Discussed: Patient seen. Chart reviewed. Case discussed with the staff. Issues related to illness and treatment were discussed with the patient. Reported compliant with treatment with no adverse affects. Tolerating treatment very well. Reporting feeling better, had good night sleep. Less irritable and less agitated. At the time of evaluation, patient was awake alert oriented 3, had no delusions , no auditory or visual hallucinations, no suicidal ideations or homicidal ideations. Medical Problems: Asthma Diagnostic Results: Reviewed DSM 5 Symptoms Update: Improving with treatment Medication Change: No Medical Record Reviewed: Yes Mental Status Examination - Cognitive Function Orientation: Person, Place, Situation, Time Memory: Intact Attention: WNL Concentration: WNL Association: WN Fund of Knowledge: [facility] Decription of patient's judgement and insights: Fair - Mood Mood: Depressed (Less than before) - Affect Affect: Depressed - Speech Speech: Appropriate - Formal Thought Process Formal Thought Process: No Impairment Psychotic Thoughts and Behaviors: None - Suicidal Ideation Suicidal Ideation: No - Homicidal Ideation Homicidal Ideation: No Goal/Treatment Plan - Goal/Treatment Plan Need for Continued Stay: Remain at risks for inpatient hospitalization, Discharge may exacerbated symptoms, Severe functional impairment Progress Toward Problem(s) and Goals/Treatment Plan: Patient education Supportive therapy Continue treatment as before Estimated Date of D/C: 05/12/17 - Smoking Cessation Smoking Cessation Initiated: No
--- NOTE | 2017-05-09 13:04 | PCM.PYCHPN ---
Psychiatric Progress Note - Psychiatric Progress Note Patient seen today, length of contact: 15 minutes Patient Chief Complaint: I'm feeling much better. Problems Identified/Issues Discussed: Patient seen. Chart reviewed. Case discussed with the staff. Issues related to illness and treatment were discussed with the patient. Reported compliant with treatment with no adverse affects. Tolerating treatment very well. Reporting feeling better, had good night sleep. Less irritable and less agitated. At the time of evaluation, patient was awake alert oriented 3, had no delusions , no auditory or visual hallucinations, no suicidal ideations or homicidal ideations. Medical Problems: Asthma Diagnostic Results: Reviewed DSM 5 Symptoms Update: improving with treatment Medication Change: No Medical Record Reviewed: Yes Mental Status Examination - Cognitive Function Orientation: Person, Place, Situation, Time Memory: Intact Attention: WNL Concentration: WNL Association: WN Fund of Knowledge: [facility] Decription of patient's judgement and insights: Fair - Mood Mood: Depressed (Less than before) - Affect Affect: Depressed - Speech Speech: Appropriate - Formal Thought Process Formal Thought Process: No Impairment Psychotic Thoughts and Behaviors: None - Suicidal Ideation Suicidal Ideation: No - Homicidal Ideation Homicidal Ideation: No Goal/Treatment Plan - Goal/Treatment Plan Need for Continued Stay: Remain at risks for inpatient hospitalization, Discharge may exacerbated symptoms, Severe functional impairment Progress Toward Problem(s) and Goals/Treatment Plan: Patient education Supportive therapy Continue treatment as before wants to go to [facility] or [facility] after discharge from the hospital, for follow-up.. Estimated Date of D/C: 05/12/17 - Smoking Cessation Smoking Cessation Initiated: No
--- NOTE | 2017-05-10 14:02 | PCM.PYCHPN ---
Psychiatric Progress Note - Psychiatric Progress Note Patient seen today, length of contact: 15 minutes Patient Chief Complaint: I'm feeling much better. Problems Identified/Issues Discussed: Patient seen. Chart reviewed. Case discussed with the staff. Issues related to illness and treatment were discussed with the patient. Reported compliant with treatment with no adverse affects. Tolerating treatment very well. Reporting feeling better, had good night sleep. Less irritable and less agitated. At the time of evaluation, patient was awake alert oriented 3, had no delusions , no auditory or visual hallucinations, no suicidal ideations or homicidal ideations. Medical Problems: Asthma Diagnostic Results: Reviewed DSM 5 Symptoms Update: Improving with treatment Medication Change: No Medical Record Reviewed: Yes Mental Status Examination - Cognitive Function Orientation: Person, Place, Situation, Time Memory: Intact Attention: WNL Concentration: WNL Association: WN Fund of Knowledge: [facility] Decription of patient's judgement and insights: Fair - Mood Mood: Depressed (Much less than before) - Affect Affect: Other (Appropriate) - Speech Speech: Appropriate - Formal Thought Process Formal Thought Process: No Impairment Psychotic Thoughts and Behaviors: None - Suicidal Ideation Suicidal Ideation: No - Homicidal Ideation Homicidal Ideation: No Goal/Treatment Plan - Goal/Treatment Plan Need for Continued Stay: Remain at risks for inpatient hospitalization, Discharge may exacerbated symptoms, Severe functional impairment Progress Toward Problem(s) and Goals/Treatment Plan: Patient education Supportive therapy Continue treatment as before wants to go to [facility] or [facility] after discharge from the hospital, for follow-up.. Estimated Date of D/C: 05/12/17 - Smoking Cessation Smoking Cessation Initiated: No
--- NOTE | 2017-05-11 15:17 | PCM.PYCHPN ---
Psychiatric Progress Note - Psychiatric Progress Note Patient seen today, length of contact: 15 minutes Patient Chief Complaint: I'm feeling much better. Problems Identified/Issues Discussed: Patient seen. Chart reviewed. Case discussed with the staff. Issues related to illness and treatment were discussed with the patient. Reported compliant with treatment with no adverse affects. Tolerating treatment very well. Reporting feeling better, had good night sleep. Less irritable and less agitated. At the time of evaluation, patient was awake alert oriented 3, had no delusions , no auditory or visual hallucinations, no suicidal ideations or homicidal ideations. Medical Problems: Asthma Diagnostic Results: Reviewed DSM 5 Symptoms Update: Improving with treatment Medication Change: No Medical Record Reviewed: Yes Mental Status Examination - Cognitive Function Orientation: Person, Place, Situation, Time Memory: Intact Attention: WNL Concentration: WNL Association: WN Fund of Knowledge: [facility] Decription of patient's judgement and insights: Fair - Mood Mood: Depressed (Much less than before) - Affect Affect: Other (Appropriate) - Speech Speech: Appropriate - Formal Thought Process Formal Thought Process: No Impairment Psychotic Thoughts and Behaviors: None - Suicidal Ideation Suicidal Ideation: No - Homicidal Ideation Homicidal Ideation: No Goal/Treatment Plan - Goal/Treatment Plan Need for Continued Stay: Remain at risks for inpatient hospitalization, Discharge may exacerbated symptoms, Severe functional impairment Progress Toward Problem(s) and Goals/Treatment Plan: Patient education Supportive therapy Continue treatment as before wants to go to [facility] or [facility] after discharge from the hospital, for follow-up.. Estimated Date of D/C: 05/12/17 - Smoking Cessation Smoking Cessation Initiated: No
[2017-05-12 07:35] VITALS: BP 101/61; PULSE 54; RESP 16; TEMP 98.3; O2SAT 99
--- NOTE | 2017-05-12 10:11 | PCM.PYCHDC ---
Mental Status Examination - Mental Status Examination Orientation: Person, Place, Situation, Time Memory: Intact Mood: Neutral Affect: Constricted Speech: Soft Attention: WNL Concentration: WNL Association: WNL Fund of Knowledge: WNL Formal Thought Process: No Impairment Description of patient's judgement and insight: good, fair Psychotic Thoughts and Behaviors: denies any AVH Suicidal Ideation: No Current Homicidal Ideation?: No Discharge Summary - Discharge Note Reason for Hospitalization: Patient is a 42 years old, unemployed, single, male with history of schizoaffective disorder depressive type, PCP use disorder, cannabis and cocaine use disorder was admitted due to worsening of depressive symptoms and suicidal ideations or plan to overdose on medications. Patient reported he is depressed for last many months, was not taking any medications due to insurance reasons. Reported no problem with sleep because of substance use. No change in appetite or weight change. Patient reported he became suicidal yesterday with plan to overdose on his drugs including PCP, cocaine and cannabis. His family brought him to the ER and patient was admitted subsequently. Patient reported he still feels suicidal but feels safe in the hospital. He has 3 previous suicidal attempts by overdose. History of 2 previous psychiatric admissions. Also reported that at times he hears voices telling him to kill himself. Patient has history of PCP, cannabis, cocaine and alcohol use. He started using PCP at 14 years of age, increased gradually. Currently he was using 2-3 cigarettes daily. Last used yesterday. Cannabis started at 14 years of age, increased gradually. Currently was using 2-3 blunts daily. Last used yesterday. Cocaine. Was guarded about cocaine but it was also positive for sure drug screen. Patient reported that he drinks alcohol only socially. No smoking cigarettes. Patient has history of shoplifting and robbery in the past. He was born in [place], has high school graduation, not working. Lives with mother or friends. Supported by family. He still and has one grown up child. His height is 6 feet 1 inch and weight is 180 pounds. Consultations:: List each consultation separately and include: 1. Reason for request. 2. Findings. 3. Follow-up Summary of Hospital Course include:: 1. Description of specific treatment plan utilized for patients during their course of treatmen. 2. Summarize the time- course for resolution of acute symptoms and/or regressed behaviors. 3. Describe issues identified and worked on during hospitalization. 4. Describe medication utilized. 5. Describe medical problems identified and treated. 6. Reassessment of suicide risk Summary of Hospital Course: During the course of his stay, patient (pt) started progressively improving and he no longer remained irritable, depressed, and suicidal. His mood was improved and he started attending groups and meetings and started socializing. Patient denied any feelings of hopelessness, helplessness, and worthlessness, denied any problem with the sleep or appetite, denied suicidal ideation or homicidal ideation. Pt denied any auditory or visual hallucinations. Some changes were made in his current medications and patient was discharged on following medications. He tolerated these medications very well and denied any side effects. CBT and AR were used. - Final Diagnosis (DSM 5) Condition upon Discharge: FAIR DSM 5: Schizoaffective disorder depressive type PCP use disorder Cannabis use disorder moderate Cocaine use disorder Disposition: HOME/ ROUTINE Follow-up Treatment Plan: Education: Pt was educated and counseled about the risks and benefits of taking and not taking medications. Pt was educated and counseled about the risks of drinking and abusing drugs. Pt was educated and counseled to go to the ER or call 911 if pt develop suicidal ideation or homicidal ideation, worsening of symptoms or severe side effects of the meds. Prescriptions/Medication Reconciliation: Gabapentin [Neurontin] 300 mg PO BID 14 Days cap QUEtiapine [Seroquel] 100 mg PO HS #14 tab - Smoking Cessation Smoking Cessation Medication prescribed: No - Antipsychotic Medications Pt discharged on 2 or more routine antipsychotic medications: No
== END 2017-05-12 11:00 | disposition home or self-care (01) | DRG 885 ==
LOC: C.ER 15:41 → C.5E 21:12
PROVIDERS: ADMIT Psychiatry & Neurology Psychiatry; ATTEND Psychiatry & Neurology Psychiatry
PROC: GZ3ZZZZ Medication Management (ICD-10-PCS; principal; 2017-05-05)
PROC: GZHZZZZ Group Psychotherapy (ICD-10-PCS; 2017-05-05)
PROC: GZ56ZZZ Individual Psychotherapy, Supportive (ICD-10-PCS; 2017-05-05)
PROC: HZ59ZZZ Individual Psychotherapy for Substance Abuse Treatment, Supportive (ICD-10-PCS; 2017-05-05)
DX: F25.1 Schizoaffective disorder, depressive type (principal); R45.851 Suicidal ideations; F16.20 Hallucinogen dependence, uncomplicated; F14.10 Cocaine abuse, uncomplicated; F12.20 Cannabis dependence, uncomplicated; F17.210 Nicotine dependence, cigarettes, uncomplicated; J45.909 Unspecified asthma, uncomplicated

== ENCOUNTER 2017-07-11 19:30 | Inpatient (IN) | payer MEDICAID ==
[2017-07-11 19:30] VITALS: BMI 22.4
--- NOTE | 2017-07-11 19:59 | C.PDOC ---
History Of Present Illness 42 y/o male presents to the ER for detox from marijuana and PCP use from the previous night. He reports that he had alcohol today. Patient denies any suicidal ideation at present. He does not have any medical complaints. Time Seen by Provider: 07/11/17 19:49 Chief Complaint (Nursing): Medical Clearance History Per: Patient History/Exam Limitations: no limitations Onset/Duration Of Symptoms: Days Current Symptoms Are (Timing): Still Present Past Medical History Reviewed: Historical Data, Nursing Documentation, Vital Signs Vital Signs: Last Vital Signs Temp 99.2 F 07/11/17 22:15 Pulse 77 07/11/17 22:15 Resp 18 07/11/17 22:15 BP 136/83 07/11/17 22:15 Pulse Ox 96 07/11/17 22:25 - Medical History PMH: Anxiety, Asthma, Depression, Fractures (RIB) Denies: Diabetes (Patient denied), Hepatitis (Patient denied), HIV (Patient denied), HTN (Patient denied), Chronic Kidney Disease, Seizures (Patient denied) , Sexually Transmitted Disease (Patient denied) Surgical History: No Surg Hx - [facility] Procedures GROUP PSYCHOTHERAPY (05/05/17) INDIV PSYCHOTHERAPY FOR SUBSTANCE ABUSE TREATMENT, SUPPORT (05/05/17) INDIVIDUAL PSYCHOTHERAPY, COGNITIVE-BEHAVIORAL (11/25/16) INDIVIDUAL PSYCHOTHERAPY, SUPPORTIVE (05/05/17) MEDICATION MANAGEMENT (05/05/17) SUTURE OF LIP LACERATION (04/04/13) TETANUS TOXOID ADMINIST (04/04/13) Family History: States: No Known Family Hx - Social History Hx Tobacco Use: Yes (smokes cigrettes) Hx Alcohol Use: Yes Hx Substance Use: Yes - Immunization History Hx Tetanus Toxoid Vaccination: No Hx Influenza Vaccination: No Hx Pneumococcal Vaccination: No Review Of Systems Except As Marked, All Systems Reviewed And Found Negative. Physical Exam - Physical Exam Appears: No Acute Distress Skin: Normal Color, Warm Head: Atraumatic, Normacephalic Nose: Normal Oral Mucosa: Moist Neck: Supple Cardiovascular: Rhythm Regular Respiratory: Normal Breath Sounds, No Accessory Muscle Use Gastrointestinal/Abdominal: Normal Exam, No Tenderness Neurological/Psych: Oriented x3, Normal Speech, Other (right sided facial twitch ) ED Course And Treatment - Laboratory Results Result Diagrams: 07/11/17 20:31 07/11/17 20:31 O2 Sat by Pulse Oximetry: 96 (RA) Pulse Ox Interpretation: Normal Medical Decision Making Medical Decision Making: Impression: Detox from Marijuana and PCP use Plan: --Labs --Urinalysis --Maalox 30 ml PO Time: 2224 Patient seen by crisis team, patient to be admitted under Dr. Martel Disposition Doctor Will See Patient In The: Hospital - Disposition Disposition: HOSPITALIZED Disposition Time: 22:30 Condition: STABLE Forms: [facility] (Liberian) - Clinical Impression Clinical Impression: Schizoaffective disorder, Substance abuse or dependence - Scribe Statement The provider has reviewed the documentation as recorded by the Keiraibe Rosalia Sahni Provider Attestation: All medical record entries made by the Keiraibe were at my direction and personally dictated by me. I have reviewed the chart and agree that the record accurately reflects my personal performance of the history, physical exam, medical decision making, and the department course for this patient. I have also personally directed, reviewed, and agree with the discharge instructions and disposition.
[2017-07-11] MEDS ORDERED: Aluminum Hydroxide/Magnesium Hydroxide Susp (30 mL) PO STA (20:34)
[2017-07-11] MEDS ORDERED: Aluminum Hydroxide/Magnesium Hydroxide Susp (30 mL) ONE (20:39)
[2017-07-11 20:43] LABS: BASO % 0.4 % (0.0-2.0); EOS % 0.4 % (0.0-4.0); HEMATOCRIT 49.9 % (35.0-51.0); LYMPH # 2.4 K/uL (1.0-4.3); LYMPH % 20.5 % (20.0-40.0); MEAN CELL VOLUME 93.6 fL (80.0-94.0); MEAN CORPUSCULAR HEMOGLOBIN 31.8 pg (27.0-31.0); MONO # 0.8 K/uL (0.0-0.8); MONO % 6.5 % (0.0-10.0); NRBC % 0.1 % (0.0-2.0); RED CELL DISTRIBUTION WIDTH 12.9 % (11.5-14.5); WHITE BLOOD COUNT 11.8 K/uL (4.8-10.8)
[2017-07-11 20:51] LABS: ALCOHOL SERUM < 10 mg/dl (0-10); ALKALINE PHOSPHATASE 69 U/L (38-126); ALT/SGPT 72 U/L (21-72); AST/SGOT 44 U/L (17-59); BILIRUBIN,TOTAL 0.9 mg/dL (0.2-1.3); BLOOD UREA NITROGEN 13 mg/dL (9-20); CALCIUM 8.9 mg/dl (8.6-10.4); CARBON DIOXIDE 29 mmol/L (22-30); CHLORIDE 102 mmol/L (98-107); GFR AFRICAN-AMERICAN > 60; GLUCOSE,RANDOM 160 mg/dL (75-110); POTASSIUM 3.4 mmol/L (3.6-5.2); SODIUM 141 mmol/L (132-148); TOTAL PROTEIN 9.5 g/dL (6.3-8.3)
[2017-07-11 21:01] LABS: RBC URINE 5 /hpf (0-3); URINE BACTERIA MOD (<OCC); URINE BILIRUBIN NEGATIVE (NEGATIVE); URINE BLOOD NEGATIVE (NEGATIVE); URINE COLOR Amber (YELLOW); URINE GLUCOSE (UA) NORMAL (Normal); URINE KETONE TRACE mg/dL (NEGATIVE); URINE LEUKOCYTE ESTERASE NEG Leu/uL (Negative); URINE PROTEIN 1+ mg/dL (NEGATIVE); WBC URINE 3 /hpf (0-5)
[2017-07-12] MEDS ORDERED: Pneumococcal 23-Valent Vaccine IM ONE (00:33)
[2017-07-12] MEDS ORDERED: Influenza Vaccine 60 mcg/0.5 mL SYR (4YR UP) IM ONE (01:12)
--- NOTE | 2017-07-12 15:52 | PCM.PSYCH ---
Initial Psychiatric Evaluation - Initial Psychiatric Evaluation Chief Complaint (in patient's own words): I was feeling suicidal and depressed. History of Present Illness and Precipitating Events: Patient is a 42 years old, unemployed, single, male with history of schizoaffective disorder depressive type, PCP use disorder, cannabis and cocaine use disorder was admitted due to worsening of depressive symptoms and suicidal ideations with plan to overdose on medications. Patient reported he is depressed for last many months, was not taking any medications due to insurance reasons. Reported no problem with sleep because of substance use. No change in appetite or weight change. Patient reported he became suicidal yesterday with plan to overdose on his drugs including PCP, cocaine and cannabis. His family brought him to the ER and patient was admitted subsequently. Patient reported he still feels suicidal but feels safe in the hospital. He has 3 previous suicidal attempts by overdose. History of 2 previous psychiatric admissions. Also reported that at times he hears voices telling him to kill himself. Patient has history of PCP, cannabis, cocaine and alcohol use. He started using PCP at 14 years of age, increased gradually. Currently he was using 2-3 cigarettes daily. Last used yesterday. Cannabis started at 14 years of age, increased gradually. Currently was using 2-3 blunts daily. Last used yesterday. Cocaine. Was guarded about cocaine but it was also positive for sure drug screen. Patient reported that he drinks alcohol only socially. No smoking cigarettes. Patient has history of shoplifting and robbery in the past. He was born in [place], has high school graduation, not working,Patient is supported by family. Never and has no children. Lives with mother. Past Psychiatric History - Past Psychiatric History Previous Treatment History: Inpatient At [facility]: At [facility] History of Abuse: None reported History of ETOH/Drug Use: See HPI. History of Family Illness: Reported history of alcohol and cannabis use and whole family. Pertinent Medical Hx (Current Medical&Sleep Prob, Allergies): Allergies Allergy/AdvReac Type Severity Reaction Status Date / Time No Known Allergies Allergy Verified 07/11/17 19:36 Albuterol HFA [Ventolin HFA 90 mcg/actuation (8 g)] 2 puff IH [id number] #1 inhaler 01/20/17 Gabapentin [Neurontin] 300 mg PO BID 14 Days cap 05/12/17 QUEtiapine [Seroquel] 100 mg PO HS #14 tab 05/12/17 Asthma Review of Systems - Psychiatric Psychiatric: Depression Mental Status Examination - Personal Presentation Personal Presentation: Looks stated age - Affect Affect: Depressed - Motor Activity Motor Activity: Calm - Reliability in Providing Information Reliability in Providing Information: Fair - Speech Speech: Organized - Mood Mood: Depressed - Formal Thought Process Formal Thought Process: No Impairment - Hallucinations/Delusions Hallucinations: Other (None reported) Delusions: Other - Obsessions/Compulsions Obsessions: None Compulsions: None - Cognitive Functions Orientation: Person, Place, Situation, Time Sensorium: Alert Attention/Concentration: Attentive Abstract Thinking: Sanford Estimate of Intelligence: Average Judgement: Intact, as evidence by: Insight regarding need for hospitalization Memory: Recent intact, as evidence by: 3/3 object recall, Remote intact, as evidenced by: Ability to recall historical events - Risk Risk: Withdrawal, Diminished functioning - Strength & Assets Inventory Strength & Assets Inventory: Family support, Cooperative - Limitations Limitations: Other DSM 5 DX - DSM 5 DSM 5 Diagnosis: Schizoaffective disorder depressive type PCP use disorder moderate Cocaine use disorder severe Cannabis use disorder severe - Recommended/Plan of Treatment Treatment Recommendations and Plan of Treatment: Patient education Supportive therapy CBT for relapse prevention Motivational intervention for abstinence Projected ELOS: 8-10 days - Smoking Cessation Smoking Cessation Initiated: No
--- NOTE | 2017-07-13 16:53 | PCM.PYCHPN ---
Psychiatric Progress Note - Psychiatric Progress Note Patient seen today, length of contact: 15 minutes Patient Chief Complaint: ""I'm feeling Good Problems Identified/Issues Discussed: Patient was seen. Chart was reviewed important content noted. Nurse input received. Patient has no new complaints. No events overnight. Patient slept well and is eating well. Patient denies any depressive symptoms. Denies suicidal or homicidal ideations. Patient does not report hallucinations. No delusions elicited. No paranoia elicited. Patient has remained in good clinical and behavioral control. Symptoms are improving, but needs more time to stabilize. Patient is finding medications beneficial and would like to continue with treatment plan. Patient appreciated that treatment team is trying to help. DSM 5 Symptoms Update: Schizoaffective disorder depressive type PCP use disorder moderate Cocaine use disorder severe Cannabis use disorder severe Medication Change: No Medical Record Reviewed: Yes Mental Status Examination - Cognitive Function Orientation: Person, Place, Situation, Time Memory: Intact Attention: WNL Concentration: WNL Association: WNL Fund of Knowledge: WNL Decription of patient's judgement and insights: limited/limited - Mood Mood: Depressed - Affect Affect: Constricted - Speech Speech: Appropriate - Formal Thought Process Formal Thought Process: No Impairment Psychotic Thoughts and Behaviors: denied - Suicidal Ideation Suicidal Ideation: No - Homicidal Ideation Homicidal Ideation: No Goal/Treatment Plan - Goal/Treatment Plan Need for Continued Stay: Severe depression anxiety, Discharge may exacerbated symptoms Progress Toward Problem(s) and Goals/Treatment Plan: Continue current management and medications. Patient educated about risks, benefits, side effects & alternatives of meds. Pt verbalized understanding & agreed with the above.~ Therapy in milieu. Estimated Date of D/C: 07/16/17 - Smoking Cessation Smoking Cessation Initiated: Yes
[2017-07-13] MEDS ORDERED: Albuterol HFA 90 mcg/actuation (8 g) IH PRN (23:30)
--- NOTE | 2017-07-14 11:18 | PCM.PYCHPN ---
Psychiatric Progress Note - Psychiatric Progress Note Patient seen today, length of contact: 15 minutes Patient Chief Complaint: I am feeling little better. Problems Identified/Issues Discussed: Patient seen and evaluated, chart reviewed and discussed with the nurse. Patient remained disorganized and internally preoccupied. He still appears paranoid and delusional. Patient reports depressed mood and feelings of hopelessness and helplessness. Patient remained isolated, confined and withdrawn. Patient is compliant with medications and denies any side effects. Symptoms are improving but need more time to stabilize. Support and psychoeducation given. Medication Change: No Medical Record Reviewed: Yes Mental Status Examination - Cognitive Function Orientation: Person, Place, Situation, Time Memory: Intact Attention: WNL Concentration: Poor Association: WNL Fund of Knowledge: Poor - Mood Mood: Depressed - Affect Affect: Constricted - Speech Speech: Appropriate, Soft - Formal Thought Process Formal Thought Process: Loosening of associations - Suicidal Ideation Suicidal Ideation: No - Homicidal Ideation Homicidal Ideation: No Goal/Treatment Plan - Goal/Treatment Plan Need for Continued Stay: Severe depression anxiety, Discharge may exacerbated symptoms Progress Toward Problem(s) and Goals/Treatment Plan: Schizoaffective disorder depressive type PCP use disorder moderate Cocaine use disorder severe Cannabis use disorder severe CBT Psychoeducation Supportive therapy, group therapy, individual therapy Seroquel 200 mg PO QHS Neurontin 300 mg by mouth 2 times a day Trazodone 50 mg by mouth daily at bedtime Use [place] for abstinence Estimated Date of D/C: 07/16/17 - Smoking Cessation Smoking Cessation Initiated: No
[2017-07-14] MEDS ORDERED: Albuterol HFA 90 mcg/actuation (8 g) IH PRN (12:15)
--- NOTE | 2017-07-15 10:43 | PCM.BM ---
<SainiMarie Rachel - Last Filed: 07/15/17 10:41> Treatment Plan Problems - Problems identified on initial assessmt Depression Date Initiated: 07/15/17 Time Initiated: 10:41 Assessment reference: NA Status: Active Substance Abuse Date Initiated: 07/15/17 Time Initiated: 10:41 Assessment reference: NA Status: Active Treatment assets and liabiliti Patient Assests: cooperative, ADL independent, physically healthy, negotiates basic needs, cognitively intact Patient Liabilities: live alone, financial problems, poor support system, substance abuse (PCP, COCAINE, THC) - [facility] Protocol Maintain good personal hygiene: daily Encourage regular showers, daily Remind patient to perform daily oral care, every shift Assist patient to perform ADL's (SELF), other Assist patient to perform ADL's Conduct patient checks and document Observation sheet: Q15 minutes (safety) Maintain personal safety: every shift Educate patient to report safety concerns to staff, every shift Monitor environment for contraband/sharps Medication safety: Monitor for expected outcome, potential side effects: every shift, Assess barriers to learning: every shift, Assess readiness for medication education: every shift Milieu Narrative: Continue current management and medications. Patient educated about risks, benefits, side effects & alternatives of meds. Pt verbalized understanding & agreed with the above.~ Therapy in milieu. Discharge/Continuing Care - Treatment Team Participation Patient/Family/SO Statement: Continue current management and medications. Patient educated about risks, benefits, side effects & alternatives of meds. Pt verbalized understanding & agreed with the above.~ Therapy in milieu. <Giselle Ramirez - Last Filed: 07/15/17 15:12> Family Contact Family involvement: Famliy/SO not involved - Goals for Treatment Patient goals for treatment: "I want to go to a program." Discharge/Continuing Care - Education Needs Education Needs: Patient Medication, Patient Coping Skills, Patient Placement options, Patient Community resources - Discharge Discharge Criteria: Tolerates medication w/o severe side effects, No longer exhibiting s/s of withdrawal Discharge to:: Home - Treatment Team Participation Discussed with Family/SO: No Was Patient/Family/SO present at Treatment Team Meeting: Yes <Jacinto Ca - Last Filed: 07/17/17 22:44> - Diagnosis (1) Schizoaffective disorder Status: Acute Interventions: 07/17/17 22:44 * Assess/adjust medications daily and /or as needed * See patient on an individual basis 7x/week to assess status of hallucinations * Discuss risks, benefits, side effects and alternatives of medications * (2) Phencyclidine (PCP) use disorder, moderate Status: Acute Interventions: 07/17/17 22:44 * Assess 7x/week regarding severity of withdrawal * Educate regarding risks, benefits, side effects and alternatives of medications * Use Motivational Interviewing for abstinence * Use CBT for relapse prevention * Medication management for withdrawal symptoms * Encourage medication assisted treatment *
--- NOTE | 2017-07-15 22:23 | PCM.PYCHPN ---
Psychiatric Progress Note - Psychiatric Progress Note Patient seen today, length of contact: 15 minutes Patient Chief Complaint: I am feeling little better. Problems Identified/Issues Discussed: Patient seen and evaluated, chart reviewed and discussed with the nurse. Patient appears more organized but he still appears paranoid and delusional. Patient remained isolated, confined and withdrawn. He reports some improvement in his depressed mood and feelings of hopelessness and helplessness. Patient is compliant with medications and denies any side effects. Symptoms are improving but need more time to stabilize. Support and psychoeducation given. Medication Change: Yes (start seroquel in AM) Medical Record Reviewed: Yes Mental Status Examination - Cognitive Function Orientation: Person, Place, Situation, Time Memory: Intact Attention: WNL Concentration: Poor Association: WNL Fund of Knowledge: Poor - Mood Mood: Depressed - Affect Affect: Constricted - Speech Speech: Appropriate, Soft - Formal Thought Process Formal Thought Process: Loosening of associations - Suicidal Ideation Suicidal Ideation: No - Homicidal Ideation Homicidal Ideation: No Goal/Treatment Plan - Goal/Treatment Plan Need for Continued Stay: Severe depression anxiety, Discharge may exacerbated symptoms Progress Toward Problem(s) and Goals/Treatment Plan: Schizoaffective disorder depressive type PCP use disorder moderate Cocaine use disorder severe Cannabis use disorder severe CBT Psychoeducation Supportive therapy, group therapy, individual therapy Seroquel 50 mg PO Daily Seroquel 200 mg PO QHS Neurontin 300 mg by mouth 2 times a day Trazodone 50 mg by mouth daily at bedtime Use [place] for abstinence Estimated Date of D/C: 07/16/17
--- NOTE | 2017-07-16 11:29 | PCM.PYCHPN ---
Psychiatric Progress Note - Psychiatric Progress Note Patient seen today, length of contact: 15 minutes Patient Chief Complaint: I am feeling little better. Problems Identified/Issues Discussed: Patient seen and evaluated, chart reviewed and discussed with the nurse. As pe rthe staff pt started coming out of his room and appears less delusional and less paranoid. He reports some improvement in his depressed mood and feelings of hopelessness and helplessness. He wants to go to a rehab after discharge. Patient is compliant with medications and denies any side effects. Symptoms are improving but need more time to stabilize. Support and psychoeducation given. Medication Change: No Medical Record Reviewed: Yes Mental Status Examination - Cognitive Function Orientation: Person, Place, Situation, Time Memory: Intact Attention: WNL Concentration: Poor Association: WNL Fund of Knowledge: Poor - Mood Mood: Depressed - Affect Affect: Constricted - Speech Speech: Appropriate, Soft - Formal Thought Process Formal Thought Process: No Impairment - Suicidal Ideation Suicidal Ideation: No - Homicidal Ideation Homicidal Ideation: No Goal/Treatment Plan - Goal/Treatment Plan Need for Continued Stay: Severe depression anxiety, Discharge may exacerbated symptoms Progress Toward Problem(s) and Goals/Treatment Plan: Schizoaffective disorder depressive type PCP use disorder moderate Cocaine use disorder severe Cannabis use disorder severe CBT Psychoeducation Supportive therapy, group therapy, individual therapy Zoloft 50 mg PO Daily Seroquel 50 mg PO Daily Seroquel 200 mg PO QHS Neurontin 300 mg by mouth 2 times a day Trazodone 50 mg by mouth daily at bedtime Use [place] for abstinence Estimated Date of D/C: 07/16/17 - Smoking Cessation Smoking Cessation Initiated: No
--- NOTE | 2017-07-17 12:05 | PCM.PYCHPN ---
Psychiatric Progress Note - Psychiatric Progress Note Patient seen today, length of contact: 15 minutes Patient Chief Complaint: I am feeling little better. Problems Identified/Issues Discussed: Patient seen and evaluated, chart reviewed and discussed with the nurse. He reports some improvement in his depressed mood and feelings of hopelessness and helplessness. As per the staff pt started coming out of his room and appears less delusional and less paranoid. He wants to go to a rehab after discharge. Patient is compliant with medications and denies any side effects. Symptoms are improving but need more time to stabilize. Support and psychoeducation given. Medication Change: No Medical Record Reviewed: Yes Mental Status Examination - Cognitive Function Orientation: Person, Place, Situation, Time Memory: Intact Attention: WNL Concentration: Poor Association: WNL Fund of Knowledge: Poor - Mood Mood: Depressed - Affect Affect: Constricted - Speech Speech: Appropriate, Soft - Formal Thought Process Formal Thought Process: Loosening of associations - Suicidal Ideation Suicidal Ideation: No - Homicidal Ideation Homicidal Ideation: No Goal/Treatment Plan - Goal/Treatment Plan Need for Continued Stay: Severe depression anxiety, Discharge may exacerbated symptoms Progress Toward Problem(s) and Goals/Treatment Plan: Schizoaffective disorder depressive type PCP use disorder moderate Cocaine use disorder severe Cannabis use disorder severe CBT Psychoeducation Supportive therapy, group therapy, individual therapy Zoloft 50 mg PO Daily Seroquel 50 mg PO Daily Seroquel 200 mg PO QHS Neurontin 300 mg by mouth 2 times a day Trazodone 50 mg by mouth daily at bedtime Use [place] for abstinence Estimated Date of D/C: 07/16/17
--- NOTE | 2017-07-18 10:33 | PCM.PYCHPN ---
Psychiatric Progress Note - Psychiatric Progress Note Patient seen today, length of contact: 15 minutes Patient Chief Complaint: I am feeling little better. Problems Identified/Issues Discussed: Patient seen and evaluated, chart reviewed and discussed with the nurse. He reports some improvement in his depressed mood and feelings of hopelessness and helplessness. As per the staff pt started coming out of his room and appears less delusional and less paranoid. He wants to go to a rehab after discharge. Patient is compliant with medications and denies any side effects. Symptoms are improving but need more time to stabilize. Support and psychoeducation given. Medication Change: No Medical Record Reviewed: Yes Mental Status Examination - Cognitive Function Orientation: Person, Place, Situation, Time Memory: Intact Attention: WNL Concentration: Poor Association: WNL Fund of Knowledge: Poor - Mood Mood: Depressed - Affect Affect: Constricted - Speech Speech: Appropriate, Soft - Formal Thought Process Formal Thought Process: No Impairment - Suicidal Ideation Suicidal Ideation: No - Homicidal Ideation Homicidal Ideation: No Goal/Treatment Plan - Goal/Treatment Plan Need for Continued Stay: Severe depression anxiety, Discharge may exacerbated symptoms Progress Toward Problem(s) and Goals/Treatment Plan: Schizoaffective disorder depressive type PCP use disorder moderate Cocaine use disorder severe Cannabis use disorder severe CBT Psychoeducation Supportive therapy, group therapy, individual therapy Zoloft 50 mg PO Daily Seroquel 50 mg PO Daily Seroquel 200 mg PO QHS Neurontin 300 mg by mouth 2 times a day Trazodone 50 mg by mouth daily at bedtime Use [place] for abstinence Estimated Date of D/C: 07/16/17
--- NOTE | 2017-07-19 15:46 | PCM.PYCHPN ---
Psychiatric Progress Note - Psychiatric Progress Note Patient seen today, length of contact: 15 minutes Patient Chief Complaint: "I'm feeling Good" Problems Identified/Issues Discussed: Patient was seen. Chart was reviewed important content noted. Nurse input received. Patient stated that he is feeling better. No events overnight. Patient slept well and is eating well. Patient denies any depressive symptoms. Denies suicidal or homicidal ideations. Patient does not report hallucinations. No delusions elicited. No paranoia elicited. Patient has remained in good clinical and behavioral control. Symptoms are improving, but needs more time to stabilize. Patient is finding medications beneficial and would like to continue with treatment plan. Patient appreciated that treatment team is trying to help. DSM 5 Symptoms Update: Schizoaffective disorder depressive type PCP use disorder moderate Cocaine use disorder severe Cannabis use disorder severe Medication Change: No Medical Record Reviewed: Yes Mental Status Examination - Cognitive Function Orientation: Person, Place, Situation, Time Memory: Intact Attention: WNL Concentration: Poor Association: WNL Fund of Knowledge: Poor Decription of patient's judgement and insights: Limited/fair - Mood Mood: Depressed - Affect Affect: Constricted - Speech Speech: Appropriate, Soft - Formal Thought Process Formal Thought Process: No Impairment Psychotic Thoughts and Behaviors: Calm and cooperative - Suicidal Ideation Suicidal Ideation: No - Homicidal Ideation Homicidal Ideation: No Goal/Treatment Plan - Goal/Treatment Plan Need for Continued Stay: Severe depression anxiety, Discharge may exacerbated symptoms Progress Toward Problem(s) and Goals/Treatment Plan: Continue current management and medications. Patient educated about risks, benefits, side effects & alternatives of meds. Pt verbalized understanding & agreed with the above. Psychoeducation was provided Therapy in milieu. Estimated Date of D/C: 07/23/17 - Smoking Cessation Smoking Cessation Initiated: Yes
--- NOTE | 2017-07-20 12:27 | PCM.PYCHPN ---
Psychiatric Progress Note - Psychiatric Progress Note Patient seen today, length of contact: 15 minutes Patient Chief Complaint: "Not well, but OK" Problems Identified/Issues Discussed: Seen, chart reviewed Doing better Support given, after care discussed Not nicholas/homi but isolated Medication Change: Yes Medical Record Reviewed: Yes Mental Status Examination - Cognitive Function Orientation: Person, Place, Situation, Time Memory: Intact Attention: WNL Concentration: Poor Association: WNL Fund of Knowledge: Poor - Mood Mood: Depressed - Affect Affect: Constricted - Speech Speech: Appropriate, Soft - Formal Thought Process Formal Thought Process: No Impairment - Suicidal Ideation Suicidal Ideation: No - Homicidal Ideation Homicidal Ideation: No Goal/Treatment Plan - Goal/Treatment Plan Need for Continued Stay: Severe depression anxiety, Discharge may exacerbated symptoms Progress Toward Problem(s) and Goals/Treatment Plan: Cont meds Support and psychoed CBT and [place] Attend groups AFter care by LISA Estimated Date of D/C: 07/23/17
--- NOTE | 2017-07-21 19:16 | PCM.PYCHPN ---
Psychiatric Progress Note - Psychiatric Progress Note Patient seen today, length of contact: 15 minutes Patient Chief Complaint: "I'm feeling Good" Problems Identified/Issues Discussed: Patient was seen. Chart was reviewed important content noted. Nurse input received. Patient stated that he is feeling better. No events overnight. Patient slept well and is eating well. Patient denies any depressive symptoms, withdrawal symptoms. Denies suicidal or homicidal ideations. Patient does not report hallucinations. No delusions elicited. No paranoia elicited. Patient has remained in good clinical and behavioral control. Symptoms are improving, but needs more time to stabilize. Patient is finding medications beneficial and would like to continue with treatment plan. Medication Change: Yes Medical Record Reviewed: Yes Mental Status Examination - Cognitive Function Orientation: Person, Place, Situation, Time Memory: Intact Attention: WNL Concentration: WNL Association: WNL Fund of Knowledge: Poor Decription of patient's judgement and insights: limited/fair Addtional comments: calm and cooperative - Mood Mood: Depressed - Affect Affect: Constricted - Speech Speech: Appropriate, Soft - Formal Thought Process Formal Thought Process: No Impairment Psychotic Thoughts and Behaviors: denied - Suicidal Ideation Suicidal Ideation: No Plan: denied - Homicidal Ideation Homicidal Ideation: No Plan: denied Goal/Treatment Plan - Goal/Treatment Plan Need for Continued Stay: Severe depression anxiety, Discharge may exacerbated symptoms Progress Toward Problem(s) and Goals/Treatment Plan: Continue current management and medications. Patient educated about risks, benefits, side effects & alternatives of meds. Pt verbalized understanding & agreed with the above. Psychoeducation was provided Therapy in milieu. Estimated Date of D/C: 07/23/17 - Smoking Cessation Smoking Cessation Initiated: Yes
[2017-07-22 06:12] VITALS: BP 99/60; PULSE 51; RESP 20; TEMP 97.9; O2SAT 94
--- NOTE | 2017-07-22 11:33 | PCM.PYCHDC ---
Mental Status Examination - Mental Status Examination Orientation: Person, Place, Time Memory: Intact Speech: Soft Attention: WNL Concentration: WNL Association: WNL Fund of Knowledge: WNL Formal Thought Process: No Impairment Description of patient's judgement and insight: good, fair Psychotic Thoughts and Behaviors: denies any AVH Suicidal Ideation: No Current Homicidal Ideation?: No Discharge Summary - Discharge Note Consultations:: List each consultation separately and include: 1. Reason for request. 2. Findings. 3. Follow-up Summary of Hospital Course include:: 1. Description of specific treatment plan utilized for patients during their course of treatmen. 2. Summarize the time- course for resolution of acute symptoms and/or regressed behaviors. 3. Describe issues identified and worked on during hospitalization. 4. Describe medication utilized. 5. Describe medical problems identified and treated. 6. Reassessment of suicide risk - Diagnosis (1) Schizoaffective disorder Current Visit: Yes Status: Acute (2) Phencyclidine (PCP) use disorder, moderate Current Visit: No Status: Acute - Final Diagnosis (DSM 5) Condition upon Discharge: STABLE Disposition: HOME/ ROUTINE Follow-up Treatment Plan: Schizoaffective disorder depressive type PCP use disorder moderate Cocaine use disorder severe Cannabis use disorder severe CBT Psychoeducation Supportive therapy, group therapy, individual therapy Zoloft 50 mg PO Daily Seroquel 50 mg PO Daily Seroquel 200 mg PO QHS Neurontin 300 mg by mouth 2 times a day Trazodone 50 mg by mouth daily at bedtime Use WA for abstinence Prescriptions/Medication Reconciliation: Gabapentin [Neurontin] 300 mg PO BID #60 cap QUEtiapine [SEROquel] 300 mg PO HS #30 tab Sertraline [Zoloft] 50 mg PO DAILY #30 tab
== END 2017-07-22 12:10 | disposition home or self-care (01) | DRG 430 ==
LOC: C.ER 19:30 → C.9E 22:25 → C.5E 22:34
DX: F25.1 Schizoaffective disorder, depressive type (principal); R45.851 Suicidal ideations; F14.20 Cocaine dependence, uncomplicated; F16.20 Hallucinogen dependence, uncomplicated; F12.20 Cannabis dependence, uncomplicated

== ENCOUNTER 2017-07-23 12:47 | Emergency (ER) | payer MEDICAID ==
[2017-07-23 12:56] VITALS: BMI 21.8
[2017-07-23 12:59] VITALS: BP 120/85; PULSE 68; RESP 18; TEMP 97.7; O2SAT 98
--- NOTE | 2017-07-23 14:38 | C.PDOC ---
History Of Present Illness 42 y/o male presents to ED c/o nervousness and sweaty since last night due to side effects of medications . The patient was discharged from [facility], yesterday after hospital stay of depression , substance abuse, and pcp. The patient states that he has not been able to take his medication for a day because he is in need of a refill. The patient denies nausea, vomiting, Chest pain, SOB, diarrhea, suicidal and homicidal Ideation. Time Seen by Provider: 07/23/17 14:01 Chief Complaint (Nursing): Allergic Reaction History Per: Patient History/Exam Limitations: no limitations Onset/Duration Of Symptoms: Days Current Symptoms Are (Timing): Still Present Associated Symptoms: Other (sweaty and nervousness ). denies: Suicidal Thoughts Additional History Per: Patient Past Medical History Reviewed: Historical Data, Nursing Documentation, Vital Signs Vital Signs: Last Vital Signs Temp 97.7 F 07/23/17 12:56 Pulse 68 07/23/17 12:56 Resp 18 07/23/17 12:56 BP 120/85 07/23/17 12:56 Pulse Ox 98 07/23/17 15:12 - Medical History PMH: Anxiety, Asthma (USE ALBUTEROL), Depression, Fractures (RIB) Denies: Diabetes (Patient denied), Hepatitis (Patient denied), HIV (Patient denied), HTN (Patient denied), Chronic Kidney Disease, Seizures (Patient denied) , Sexually Transmitted Disease (Patient denied) Surgical History: No Surg Hx - [facility] Procedures GROUP PSYCHOTHERAPY (05/05/17) INDIV PSYCHOTHERAPY FOR SUBSTANCE ABUSE TREATMENT, SUPPORT (05/05/17) INDIVIDUAL PSYCHOTHERAPY, COGNITIVE-BEHAVIORAL (11/25/16) INDIVIDUAL PSYCHOTHERAPY, SUPPORTIVE (05/05/17) MEDICATION MANAGEMENT (05/05/17) SUTURE OF LIP LACERATION (04/04/13) TETANUS TOXOID ADMINIST (04/04/13) Family History: States: No Known Family Hx - Social History Hx Tobacco Use: Yes (smokes cigrettes) Hx Alcohol Use: Yes (HISTORY) Hx Substance Use: Yes - Immunization History Hx Tetanus Toxoid Vaccination: No Hx Influenza Vaccination: No Hx Pneumococcal Vaccination: No Review Of Systems Except As Marked, All Systems Reviewed And Found Negative. Constitutional: Positive for: Other (benign). Negative for: Fever, Chills Psych: Positive for: Other (nervousness, non homicidal ideation ). Negative for : Anxiety, Suicidal ideation Physical Exam - Physical Exam Appears: Non-toxic, Other (nervous and panic- like ) Skin: Warm, Dry Head: Atraumatic, Normacephalic Eye(s): bilateral: PERRL Oral Mucosa: Moist Chest: Symmetrical Cardiovascular: Rhythm Regular Extremity: Capillary Refill (2<sec.) Neurological/Psych: Oriented x3, Normal Speech, Normal Cognition Gait: Steady ED Course And Treatment O2 Sat by Pulse Oximetry: 98 (RA) Progress Note: Discussed with Crisis symptoms are related to the patient not taking medication. The patient is ready for discharge. The patient is advised to have a 1-2 day follow up with the psychiatrist Dr. Ca for further evaluation. The diagnosisis Nervousness. Disposition Counseled Patient/Family Regarding: Diagnosis - Disposition Referrals: Jacinto Ca MD [Staff Provider] - Disposition: HOME/ ROUTINE Disposition Time: 14:35 Condition: STABLE Additional Instructions: follow up with clinic or Dr. Ca in 2 days call to make an appointment continue medications at home return to hospital if symptoms worsens or progress Instructions: Anxiety (ED) Forms: [facility] (Argentine), General Discharge Instructions - Clinical Impression Clinical Impression: Nervousness - Scribe Statement The provider has reviewed the documentation as recorded by the Scribe Lizabeth Armendariz
== END 2017-07-23 14:43 | disposition home or self-care (01) ==
LOC: C.ER 12:47
DX: R45.0 Nervousness (principal); F17.210 Nicotine dependence, cigarettes, uncomplicated

== ENCOUNTER 2017-12-07 01:08 | Emergency (ER) | payer MEDICAID ==
[2017-12-07 01:09] VITALS: BMI 21.8
[2017-12-07 01:28] VITALS: RESP 18
--- NOTE | 2017-12-07 01:43 | C.PDOC ---
History Of Present Illness 42 year old male presents to the ER after his mother found him sleeping, shaking , and with purple lips. Patient admits to heroin, PCP, and marijuana use tonight. Denies physical complaints at this time. Chief Complaint (Nursing): Weakness/Neurological Deficit History Per: Patient History/Exam Limitations: no limitations Onset/Duration Of Symptoms: Hrs Current Symptoms Are (Timing): Still Present Seizure Or Post-ictal Symptoms: None Fall Associated With With Symptoms: No Recent travel outside of the [place]: No Past Medical History Reviewed: Historical Data, Nursing Documentation, Vital Signs Vital Signs: Last Vital Signs Temp 99.3 F 12/07/17 01:23 Pulse 89 12/07/17 01:23 Resp 18 12/07/17 01:23 BP 136/98 H 12/07/17 01:23 Pulse Ox 95 12/07/17 03:34 - Medical History PMH: Anxiety, Asthma (USE ALBUTEROL), Depression, Fractures (RIB) - [facility] Procedures GROUP PSYCHOTHERAPY (05/05/17) INDIV PSYCHOTHERAPY FOR SUBSTANCE ABUSE TREATMENT, SUPPORT (05/05/17) INDIVIDUAL PSYCHOTHERAPY, COGNITIVE-BEHAVIORAL (11/25/16) INDIVIDUAL PSYCHOTHERAPY, SUPPORTIVE (05/05/17) MEDICATION MANAGEMENT (05/05/17) SUTURE OF LIP LACERATION (04/04/13) TETANUS TOXOID ADMINIST (04/04/13) Family History: States: Unknown Family Hx - Social History Hx Tobacco Use: Yes (smokes cigrettes) Hx Alcohol Use: Yes (HISTORY) Hx Substance Use: Yes - Immunization History Hx Tetanus Toxoid Vaccination: No Hx Influenza Vaccination: No Hx Pneumococcal Vaccination: No Review Of Systems Constitutional: Negative for: Fever, Chills Cardiovascular: Negative for: Chest Pain, Palpitations Respiratory: Negative for: Cough, Shortness of Breath Gastrointestinal: Negative for: Nausea, Vomiting Physical Exam - Physical Exam Appears: Non-toxic, Other (Alert, conscious) Skin: Normal Color, Warm, Dry Head: Atraumatic, Normacephalic Eye(s): bilateral: Normal Inspection Oral Mucosa: Moist Chest: Symmetrical, No Tenderness Cardiovascular: Rhythm Regular Respiratory: Normal Breath Sounds, No Rales, No Rhonchi, No Wheezing Gastrointestinal/Abdominal: Soft, No Tenderness Neurological/Psych: Oriented x3, Normal Speech ED Course And Treatment - Laboratory Results Result Diagrams: 12/07/17 01:45 12/07/17 01:45 O2 Sat by Pulse Oximetry: 95 (Room air) Pulse Ox Interpretation: Normal Progress Note: Blood work and urinalysis ordered. Patient's blood work was positive for opiates, pcp, and marijuana; is awake, alert, and oriented x3 with steady and no complaints, he is requesting to go home, will discharge home. Disposition - Disposition Referrals: Eder Wilcox MD [Primary Care Provider] - [facility] at [facility] [Outside] Disposition: HOME/ ROUTINE Disposition Time: 03:33 Condition: STABLE Instructions: Polysubstance Abuse Forms: [facility] (Yi) - POA Present On Arrival: None - Clinical Impression Clinical Impression: Polysubstance abuse - Scribe Statement The provider has reviewed the documentation as recorded by the Scribe Ernst Jeronimo All medical record entries made by the Scribe were at my direction and personally dictated by me. I have reviewed the chart and agree that the record accurately reflects my personal performance of the history, physical exam, medical decision making, and the department course for this patient. I have also personally directed, reviewed, and agree with the discharge instructions and disposition.
[2017-12-07 01:50] LABS: BASO % 0.5 % (0.0-2.0); EOS # 0.2 K/uL (0.0-0.7); HEMOGLOBIN 16.7 g/dL (12.0-18.0); LYMPH # 1.7 K/uL (1.0-4.3); LYMPH % 20.3 % (20.0-40.0); MEAN CELL VOLUME 92.8 fL (80.0-94.0); MEAN CORPUSCULAR HGB CONC 34.5 g/dL (33.0-37.0); MONO # 0.8 K/uL (0.0-0.8); MONO % 10.1 % (0.0-10.0); NEUT # 5.6 K/uL (1.8-7.0); NEUT % 67.1 % (50.0-75.0); RBC 5.21 Mil/uL (4.40-5.90); RED CELL DISTRIBUTION WIDTH 12.8 % (11.5-14.5); WHITE BLOOD COUNT 8.4 K/uL (4.8-10.8)
[2017-12-07 02:00] LABS: ALB/GLOB RATIO 1.2 (1.0-2.1); ALBUMIN 4.5 g/dL (3.5-5.0); ALT/SGPT 45 U/L (21-72); AST/SGOT 38 U/L (17-59); BLOOD UREA NITROGEN 14 mg/dL (9-20); CALCIUM 9.2 mg/dl (8.6-10.4); GFR AFRICAN-AMERICAN > 60; GFR NON-AFRICAN AMERICAN > 60
[2017-12-07 02:58] LABS: SQUAMOUS EPITHIAL < 1 /hpf (0-5); URINE BILIRUBIN NEGATIVE (NEGATIVE); URINE BLOOD NEGATIVE (NEGATIVE); URINE CLARITY Clear (Clear); URINE COLOR Amber (YELLOW); URINE GLUCOSE (UA) NORMAL (Normal); URINE LEUKOCYTE ESTERASE NEG Leu/uL (Negative); URINE PROTEIN 1+ mg/dL (NEGATIVE)
[2017-12-07 03:10] LABS: BARBITURATES, UR NEGATIVE (NEGATIVE); BENZODIAZEPINES, UR NEGATIVE (NEGATIVE); OPIATES, UR POSITIVE (NEGATIVE); PHENCYCLIDINE, UR POSITIVE (NEGATIVE)
[2017-12-07 03:46] VITALS: BP 144/94; PULSE 83; TEMP 99
[2017-12-07 03:47] VITALS: O2SAT 95
== END 2017-12-07 03:44 | disposition home or self-care (01) ==
LOC: C.ER 01:08 → SUPCPDRO 01:08 → C.ER 03:44
DX: F19.10 Other psychoactive substance abuse, uncomplicated (principal)

== ENCOUNTER 2018-07-22 11:46 | Emergency (ER) | payer MEDICAID ==
[2018-07-22 11:46] VITALS: BMI 23.7
[2018-07-22 11:52] VITALS: BP 129/78; PULSE 70; RESP 18; TEMP 98.5; O2SAT 98
[2018-07-22] MEDS ORDERED: Benzocaine/Menthol (Cepacol) Lozenge MT ONE (12:08)
--- NOTE | 2018-07-22 12:09 | C.PDOC ---
History Of Present Illness 43 year old male, with history of asthma, comes in to ED complaining of a sore throat, rhinorrhea, subjective fever, shakes, and cough since yesterday. Patient denies any chest pain, SOB, sick contacts, or recent travel. Time Seen by Provider: 07/22/18 11:54 Chief Complaint (Nursing): Flu-like Symptoms History Per: Patient History/Exam Limitations: no limitations Onset/Duration Of Symptoms: Days Current Symptoms Are (Timing): Still Present Past Medical History Reviewed: Historical Data, Nursing Documentation, Vital Signs Vital Signs: Last Vital Signs Temp 98.5 F 07/22/18 11:50 Pulse 70 07/22/18 11:50 Resp 18 07/22/18 11:50 BP 129/78 07/22/18 11:50 Pulse Ox 98 07/22/18 11:50 - Medical History PMH: Anxiety, Asthma (USE ALBUTEROL), Depression, Fractures (RIB) Denies: Diabetes (Patient denied), Hepatitis (Patient denied), HIV (Patient denied), HTN (Patient denied), Chronic Kidney Disease, Seizures (Patient denied), Sexually Transmitted Disease (Patient denied) - [facility] Procedures GROUP PSYCHOTHERAPY (05/05/17) INDIV PSYCHOTHERAPY FOR SUBSTANCE ABUSE TREATMENT, SUPPORT (05/05/17) INDIVIDUAL PSYCHOTHERAPY, COGNITIVE-BEHAVIORAL (11/25/16) INDIVIDUAL PSYCHOTHERAPY, SUPPORTIVE (05/05/17) MEDICATION MANAGEMENT (05/05/17) SUTURE OF LIP LACERATION (04/04/13) TETANUS TOXOID ADMINIST (04/04/13) Family History: States: No Known Family Hx - Social History Hx Tobacco Use: Yes (smokes cigrettes) Hx Alcohol Use: Yes (HISTORY) Hx Substance Use: Yes - Immunization History Hx Tetanus Toxoid Vaccination: No Hx Influenza Vaccination: No Hx Pneumococcal Vaccination: No Review Of Systems Except As Marked, All Systems Reviewed And Found Negative. Constitutional: Positive for: Fever (subjective), Other (Shakes) ENT: Positive for: Nose Discharge (Rhinorrhea), Throat Pain Cardiovascular: Negative for: Chest Pain Respiratory: Positive for: Cough. Negative for: Shortness of Breath Physical Exam - Physical Exam Appears: Non-toxic, No Acute Distress Skin: Warm, Dry Head: Atraumatic, Normacephalic Eye(s): bilateral: Normal Inspection Oral Mucosa: Moist Throat: Normal, No Erythema, No Exudate, Other (Uvula midline) Lymphatic: Other (tenderness on antrior cervical lymph nodes) Chest: Symmetrical Cardiovascular: Rhythm Regular, No Murmur Respiratory: Normal Breath Sounds, No Rales, No Rhonchi, No Wheezing Gastrointestinal/Abdominal: Soft, No Tenderness Extremity: Bilateral: Atraumatic, Normal Color And Temperature, Normal ROM Neurological/Psych: Oriented x3, Normal Speech ED Course And Treatment O2 Sat by Pulse Oximetry: 98 (RA) Pulse Ox Interpretation: Normal Medical Decision Making Medical Decision Making: Impression: Flu-like symptoms or URI Plan: --Benzocaine/Menthol --Toradol 30 mg IM --Flu swab --Throat culture --Rapid strep Patient is negative for influenza A and strep. Patient will be discharged home. Disposition - Disposition Referrals: [facility] [Outside] Disposition: HOME/ ROUTINE Disposition Time: 13:24 Condition: GOOD Prescriptions: Benzocaine/Menthol [Cepacol Sore Throat] 1 polo MM Q3 #10 polo Ibuprofen [Motrin] 600 mg PO Q6 5 Days #20 tab Instructions: Viral Upper Respiratory Infection, Adult (DC) Forms: [facility] (Urdu), Work Excuse - Clinical Impression Clinical Impression: Upper respiratory infection - Scribe Statement The provider has reviewed the documentation as recorded by the Scribe Raysa Edwards
== END 2018-07-22 13:24 | disposition home or self-care (01) ==
LOC: C.ER 11:46
DX: J06.9 Acute upper respiratory infection, unspecified (principal); F17.210 Nicotine dependence, cigarettes, uncomplicated
CPT/HCPCS: 87070; 87430; 87804; 96372; 99283; J1885